=== PATIENT | female | born 1960 | race Caucasian/White ===

== ENCOUNTER → 2023-08-02 10:49 | Outpatient (REF) | payer MEDICARE, OTHER, SELFPAY | LOC: HWRAD 10:49 | PROVIDERS: ATTENDING PHYSICIAN Nurse Practitioner | DX: J40 Bronchitis, not specified as acute or chronic (principal) | CPT/HCPCS: 71046 ==

== ENCOUNTER → 2023-09-12 08:50 | Outpatient (REF) | payer MEDICARE, OTHER, SELFPAY | LOC: RAD 08:50 | PROVIDERS: ATTENDING PHYSICIAN Internal Medicine; FAMILY PHYSICIAN Nurse Practitioner | DX: R13.19 Other dysphagia (principal) | CPT/HCPCS: 74221 ==

== ENCOUNTER 2023-10-15 12:18 | Emergency (ER) | payer MEDICARE, OTHER, SELFPAY ==
[2023-10-15 12:20] VITALS: BP 102/68
--- NOTE | 2023-10-15 12:39 | ED.GENMED ---
History of Present Illness
General
Chief Complaint: Fall
Source: patient
Exam Limitations: none
Time Seen by Provider: 10/15/23 12:33
History of Present Illness
History of Present Illness:
See MDM
Past History
Past History
ED Past Medical History: Hypercholesterolemia and Other (Kidney stone status post recent lithotripsy on the left, RSD, Alzheimer's, diverticulosis, irritable bowel syndrome)
ED Past Surgical History: Gynecological, Orthopedic (Spinal cord stimulator) and Urological
Social History
Tobacco: Non-smoker
Alcohol: None
Drug: None
Personal:
Living: with family
Employment: Not employed
Family History
Family History: Other (Father with lymphoma)
Phy Exam
Physical Exam
Physical Exam:
See MDM
Course
Orders/Labs/Results
Orders:
Orders
10/15/23 12:37
CT Cervical Spine W/o Iv Contr Urgent
Comment:
Reason For Exam: Fall, Neck pain
CT Head W/o Iv Contrast Urgent
Comment:
Reason For Exam: Fall, R side headache
Ketorolac [Toradol] 30 mg IM NOW STA
Shoulder, Right, Trauma [CR Shoulder, Trauma - Right] Urgent
Comment:
Reason For Exam: Fall, R shoulder pain
Vital Signs
Initial and Last Documented VS:
Initial Vital Signs
Temp Pulse Resp BP Pulse Ox
98.2 F 70 18 102/68 97
10/15/23 12:20 10/15/23 12:20 10/15/23 12:20 10/15/23 12:20 10/15/23 12:20
Last Documented Vital Signs
Temp Pulse Resp BP Pulse Ox
98.2 F 70 18 102/68 97
10/15/23 12:20 10/15/23 12:20 10/15/23 12:20 10/15/23 12:20 10/15/23 12:20
MDM/Problems Addressed
Differential Diagnosis Includes:
HPI and MDM Narrative:
62-year-old female presenting with a fall. She got up to go to the bathroom and she believes he tripped and fell. She hit the right side of her head and her right shoulder. Patient complaining of pain. She is chronically on narcotic. Will give
dose of Toradol and obtain CT head and neck and right shoulder x-ray.
Physical exam
General: Well appearing and non-toxic
HEENT: protecting airway. Right scalp hematoma
Neck: Mild paracervical muscle tenderness supple
CV: No evidence of cyanosis
Resp: No accessory muscle use
Abd: Non-distended
Extremities: Tenderness to anterior right shoulder along AC joint. Pain with external rotation. Extremity otherwise neurovascularly intact
Neuro: alert
Psych: Normal affect
Skin: Intact
Problems Addressed including Acute and Chronic Conditions affecting care:
1. Head injury
Acuity: acute
Prognosis: stable
Details: Will obtain CT head
2. Right shoulder injury
Acuity: acute
Prognosis: stable
Details: Will obtain shoulder x-ray
Updates
CT head and neck negative. Shoulder x-ray negative. Discussed return precautions and follow-up with orthopedics if symptoms persist
Differential Diagnosis (but not limited to): Intracranial hemorrhage, contusion, concussion, fracture, sprain, rotator cuff injury
Testing considered: Blood work
Drug therapy (if applicable): OTC meds, please see d/c instruction regarding Rx drugs
Amount and/or Complexity of Data Reviewed
Clinical info obtained from: Patient
External data reviewed: N/A
Labs I independently reviewed (but not limited to): N/A
Radiology: The CT scan was personally and independently reviewed. In addition, official CT report reviewed.
X-ray independently reviewed: Shoulder x-ray without fracture or dislocation
Pulse Ox: not hypoxic
EKG independently reviewed: N/A
Frame Nailer: N/A
Critical Care: N/A
Risk of Complication:
Social Determinants of health: Good social support
Discussed with other providers: N/A
Escalation of Care includes Admit/Obs: After being observed in the Emergency Department, pt stable for discharge.
Occasional wrong word or 'sound a like' substitutions may have occurred due to the inherent limitations of voice recognition software. Read the chart carefully and recognize, using context, where substitutions have occurred.
*Critical Care Note
Total Time (30-74mins, 75-104mins- exclusive of procedures): Not Applicable
ED Attending Note
-
Portions of this chart may have been created with voice recognition software.� Occasional wrong word or��sound alike� substitutions may have occurred due to the inherent limitations of voice recognition software.
Discharge Plan
Departure
Patient Disposition: Home (Routine Discharge)
Date of Disposition: 10/15/23
Time of Disposition: 14:22
Patient with high blood pressure during this ER visit?: No
Discharge Problem:
Head injury, Injury of shoulder
Instructions: Rotator Cuff Injury (DC)
Prescriptions:
No Action
levothyroxine 125 mcg Tablet
125 mcg PO DAILY
oxycodone 5 mg Tablet
5 mg PO Q4H
rosuvastatin [Crestor] 20 mg Tablet
20 mg PO DAILY
lorazepam [Ativan] 1 mg tablet
1 mg PO DAILY PRN (Reason: anxiety) Qty: 10 0RF
baclofen 10 mg tablet
10 mg PO TID Qty: 21 0RF
Referrals:
Lonnie Ware MD [Active] -
Ruchi Cardona CRNP [Family Provider] -
Activity Restrictions/Additional Instructions:
Please return for any worsening symptoms.
You may return at any time if you have further concerns.
Please follow up with your doctor at the first available appointment, preferably this week.
Please make an appointment to see the orthopedist if symptoms persist.
Thank you for choosing [facility].
Interventions
Interventions:
*Risk Screen - Suicide Last Done: 10/15/23 12:20
*General Assessment Last Done: 10/15/23 12:20
Discharge Date and Time
Print Language: SCOTTISH
[2023-10-15] MEDS: TORADOL 30 MG IM (12:42)
[2023-10-15 14:44] VITALS: BP 129/88
== END 2023-10-15 14:45 | disposition home or self-care (01) ==
LOC: EMR 12:18
PROVIDERS: EMERGENCY PHYSICIAN Student in an Organized Health Care Education/Training Program; FAMILY PHYSICIAN Nurse Practitioner
DX: S09.90XA Unspecified injury of head, initial encounter (principal); S49.91XA Unspecified injury of right shoulder and upper arm, initial encounter; W01.0XXA Fall on same level from slipping, tripping and stumbling without subsequent striking against object, initial encounter
CPT/HCPCS: 99284; 96372; 70450; 72125; 73030

== ENCOUNTER → 2024-01-26 13:22 | Outpatient (REF) | payer MEDICARE, OTHER, SELFPAY | LOC: RCS 13:22 | PROVIDERS: ATTENDING PHYSICIAN Internal Medicine Cardiovascular Disease; FAMILY PHYSICIAN Nurse Practitioner | DX: R07.89 Other chest pain (principal) | CPT/HCPCS: 93017; 93350 ==

== ENCOUNTER → 2024-02-22 12:38 | Outpatient (REF) | payer MEDICARE, OTHER, SELFPAY | LOC: HWRAD 12:38 | DX: M25.551 Pain in right hip (principal) | CPT/HCPCS: 73030; 73502 ==

== ENCOUNTER → 2024-04-02 15:07 | Outpatient (REF) | payer MEDICARE, OTHER, SELFPAY | LOC: HWWDC 15:07 | PROVIDERS: ATTENDING PHYSICIAN Obstetrics & Gynecology | DX: Z12.31 Encounter for screening mammogram for malignant neoplasm of breast (principal) | CPT/HCPCS: 77063; 77067 ==

== ENCOUNTER → 2024-07-31 12:39 | Outpatient (REF) | payer MEDICARE, OTHER, SELFPAY | LOC: HWRAD 12:39 | DX: R51.9 Headache, unspecified (principal); Z91.81 History of falling | CPT/HCPCS: 70450 ==

== ENCOUNTER 2024-09-01 22:47 | Inpatient (IN) | payer MEDICARE, OTHER, SELFPAY ==
[2024-09-01] VITALS (28 sets, daily range): BP systolic 91–163; BP diastolic 67–93; BMI 27.9
[2024-09-01] MEDS: NSS 1000 IV (17:39)
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
[2024-09-01 18:26] LABS: % Basophils 0.7 % (0-2); % Eosinophils 9.5 % (0-6); % Immature Granulocytes 0.2 % (0-0.5); % Lymphocytes 42.5 % (20.5-51.1); % Monocytes 9.1 % (1.7-9.3); Absolute Eosinophils 0.4 10^3/uL (0-0.7); Absolute Monocytes 0.4 10^3/uL (0.1-0.6); Absolute Neutrophils 1.8 10^3/uL (1.4-6.5); Hematocrit 36.9 % (37.0-47.0); Hemoglobin 12.5 g/dL (12.0-16.0); Mean Corp Hgb Conc. 33.9 g/dL (33.0-37.0); Mean Corpuscular Hgb 30.6 pg (27.0-31.0); Mean Corpuscular Volume 90.2 fL (81.0-99.0); Mean Platelet Volume 10.5 fL (7.4-10.4); Nucleated Red Blood Cells % 0 %; Platelet Count 166 10^3/uL (130-400); Red Blood Cell Count 4.09 10^6/uL (4.20-5.40); Red Cell Dist. Width 12.8 % (11.5-14.5); White Blood Cell Count 4.6 10^3/uL (4.8-10.8)
[2024-09-01 18:56] LABS: ALT (SGPT) 18 U/L (0-35); AST (SGOT) 28 U/L (14-36); Acetaminophen < 10 ug/ml (10-30); Albumin 4.2 g/dl (3.5-5.0); Alkaline Phosphatase 91 U/L (38-126); Blood Urea Nitrogen 12 mg/dl (7-17); Calcium 9.2 mg/dl (8.4-10.2); Carbon Dioxide 26 mmol/L (22-30); Chloride 106 mmol/L (98-107); Estimated Creatinine Clearance 75 ml/min; Glucose 89 mg/dl (70-99); Magnesium 1.9 mg/dl (1.6-2.3); Potassium 4.3 mmol/L (3.5-5.1); Salicylate 3.6 mg/dl (2.0-20.0); Sodium 137 mmol/L (135-145); Total Bilirubin 0.3 mg/dl (0.2-1.3); Total Protein 6.9 g/dl (6.3-8.2); eGFR > 60.00
[2024-09-01 18:57] LABS: Alcohol None Detected
[2024-09-01 19:45] LABS: Amphetamines Negative (Negative); Barbiturates Negative (Negative); Benzodiazepines Negative (Negative); Buprenorphine Negative (Negative); Cocaine Negative (Negative); Marijuana Negative (Negative); Methadone Negative (Negative); Methamphetamines Negative (Negative); Opiates Positive (Negative); Phencyclidine Negative (Negative); Tricyclic Antidepressants Negative (Negative)
[2024-09-01 20:06] LABS: Fentanyl, Urine Negative (Negative)
--- NOTE | 2024-09-01 20:45 | PTCARENOTE ---
Pt remains on 1:1. Pt was observed slumped over to her right side and shaking. Pt was unarousable to verbal stimuli but did arouse to painful stimuli. VSS. Pt vomited a large amount of emesis. Tigan IM given. See MAR. Pt remains awake but
detached from reality. Pt remains on 1:1. Dr. Lyn made aware. Will continue to monitor.
[2024-09-01 20:52] LABS: Glucose - Point of Care 89 mg/dl (70-99)
[2024-09-01] MEDS: TIGAN 200 MG IM (21:20)
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
[2024-09-02] VITALS (58 sets, daily range): BP systolic 68–169; BP diastolic 46–153; BMI 28.8
--- NOTE | 2024-09-02 00:45 | PTCARENOTE ---
Patient received from ED, awake and alert, oriented to self only. NSR on monitor, afebrile, blood pressure as documented. Palpable pulses throughout, no edema noted. Lungs clear, pulse ox 95% on room air. Abdomen obese with positive bowel
sounds. Skin intact. #20 g in RAC flushed and patent. 1:1 at bedside
[2024-09-02] MEDS: NSS 1000 IV ×2 (00:48→02:51)
--- NOTE | 2024-09-02 02:22 | PTCARENOTE ---
Patient unable to void, while speaking to patient, patient had seizure like activity, heart rate in the 130s, patient then went into PEA, code 9 called. See CODE sheet.
--- NOTE | 2024-09-02 02:47 | W.PN.ANESINT ---
Anesthesia Intubation Note
- Intubation Note
Intubation Note:
Diagnosis: respiratory distress
Blade: glidescope
Tube Size: 8.0 HiLo
Depth: 22cm
Side Taped: center
Drugs Used: 200mg propofol, 50mg rocuronium
Grade View: grade 1 view
EtCO2 Present: ETCO2 color change present on ETCO2 detector
Atraumatic: atramatic intubation
Attempts: 1
Insertion Start and Stop Time: 224 start 228 end
SaO2 Pre: 95 start
SaO2 Post: 99 end
Glidescope Used: live glidescope used
Other Airway Adjustments: none
Pre-Oxygenated: preoxygenated by respiratory therapy
Portable Chest X-Ray: ordered
RSI: no
Suctioned: no
Bilateral Breath Sounds Confirmed: bilateral breath sounds confirmed, no breath sounds over abdomen
Vent Settings:
Settings per _X__Attending Physician
Cynthia Nix CRNA
[2024-09-02] MEDS: CORDARONE 518 MG IV (02:52)
[2024-09-02] MEDS: DIPRIVAN 100 IV ×3 (02:53→14:57)
[2024-09-02] MEDS: LEVOPHED 250 IV (02:53)
[2024-09-02 03:10] LABS: B.E. -2.9 mmol/L; HCO3 22.6 mmol/L (21-28); PCO2 41 mmHg (32-35); PO2 289 mmHg (83-108); pH 7.35 (7.35-7.45)
[2024-09-02] MEDS: SUBLIMAZE 100 MCG IV (03:42)
[2024-09-02 03:47] LABS: Hematocrit 33.9 % (37.0-47.0); Mean Corp Hgb Conc. 35.4 g/dL (33.0-37.0); Mean Corpuscular Volume 90.4 fL (81.0-99.0); Mean Platelet Volume 11.2 fL (7.4-10.4); Platelet Count 153 10^3/uL (130-400); Red Blood Cell Count 3.75 10^6/uL (4.20-5.40); Red Cell Dist. Width 12.5 % (11.5-14.5); White Blood Cell Count 6.8 10^3/uL (4.8-10.8)
[2024-09-02] MEDS: SUBLIMAZE 100 IV ×2 (03:50→15:37)
[2024-09-02 03:55] LABS: INR 0.96; PT 13.2 Sec (11.4-14.6)
[2024-09-02] MEDS: ATIVAN 1 MG IV (03:55)
[2024-09-02 03:56] LABS: APTT 24.5 Sec (23.4-35.0)
--- NOTE | 2024-09-02 03:58 | W.PN.UPDATE ---
Update Note
Progress Note Update
09/02/2024
0222- Code 9 was called for PEA arrest. Just prior to code patient had seizure, likely hypoxemic event lead to code. Patient also overdosed on Trazodone and Sertraline which is what prompted her ER visit, and could also have prolonged QT interval.
CPR was initiated immediately and medications epinephrine and bicarb given IV. Patient intubated during resuscitation efforts by [employer]. Dr. Reyes, hospitalist at bedside during code, recommendations received. Pulse check was done because an
organized rhythm was thought to be seen. Tachycardia with ectopy and random beats of wide complex tachycardia, all very irregular but pulse was palpable. Magnesium IV given, amiodarone 150mg IV bolus, and amiodarone gtt initiated to help avoid
ventricular arrhythmias. EKG obtained to check QT which showed prolonged interval. Labs sent, chest xray ordered to confirm ETT placement, and propofol/fentanyl initiated for sedation. Dr. Reyes attempted to call patient's but he did not
answer the phone.
[2024-09-02 04:14] LABS: ALT (SGPT) 21 U/L (0-35); AST (SGOT) 46 U/L (14-36); Albumin 3.7 g/dl (3.5-5.0); Alkaline Phosphatase 57 U/L (38-126); Blood Urea Nitrogen 11 mg/dl (7-17); Calcium 7.4 mg/dl (8.4-10.2); Carbon Dioxide 21 mmol/L (22-30); Chloride 107 mmol/L (98-107); Direct Bilirubin 0.9 mg/dl (0.0-0.4); Estimated Creatinine Clearance 98 ml/min; Glucose 159 mg/dl (70-99); Magnesium 2.2 mg/dl (1.6-2.3); Phosphorus 3.4 mg/dl (2.5-4.5); Potassium 4.1 mmol/L (3.5-5.1); Sodium 136 mmol/L (135-145); Total Bilirubin 1.4 mg/dl (0.2-1.3); Total Protein 6.3 g/dl (6.3-8.2); eGFR > 60.00
[2024-09-02] MEDS: SUBLIMAZE 50 MCG IV ×4 (04:14→20:23)
[2024-09-02] MEDS: SYNTHROID 25 MCG TUBE (05:28)
--- NOTE | 2024-09-02 07:50 | PTCARENOTE ---
Received patient ET to vent, sedated with Fentanyl and Propofol drips, SB in 50s with prolonged QTc, Amiodarone drip discontinued per credit consultant, NGT and Palma in place.
[2024-09-02] MEDS: CALCIUM GLUCONATE 100 IV ×3 (08:03→22:30)
[2024-09-02] MEDS: KEPPRA 1000 MG IV (08:05)
[2024-09-02] MEDS: PROTONIX IV 40 MG IV (08:06)
[2024-09-02] MEDS: NSS (PRESERVATIVE FREE) 10 ML IV (08:06)
[2024-09-02 09:16] LABS: Triglycerides 640 mg/dl (10-149)
--- NOTE | 2024-09-02 09:27 | CON.CAR ---
Addendum entered and electronically signed by Earl Garcia MD 09/02/24 14:03:
I saw and examined the patient.
The COVER SEAMER's note was reviewed and I agree with the note.
Comment: The documented bradycardia, Torsades, QT prolongation, and short atrial runs are all likely secondary to toxic-metabolic conditions and medication toxicities. I would avoid amiodarone. No role for EPS/ICD/Pacemaker or specific medical
therapy. We will follow with you.
Original Note:
Consultation
Consultation Request
Date/Time Consultation Requested: 09/02/2024 08:45
Date/Time Consultation Performed: 09/02/2024 09:30
Requesting Provider: Dr. Hernandez
Performing Provider: KAR Montana for Dr. Garcia
Reason for Consultation: Long QT s/p PEA arrest
Medical History
-
Chief Complaint: Overdose
History of Present Illness:
Danni Burrows is a 63 year old female with progressive early-onset Alzheimer's dementia, severe hyperlipidemia (LDL off meds over 190), remote cardiac ablation for arrhythmia (details unknown), and RSD of the foot with neurostimulator who
presented with overdose. Her endorsed depression related to diagnosis of dementia. Patient had an argument with family and she took trazodone and sertraline. Approximately 25-30 50 mg trazodone tablets were missing and approximately 10
100 mg sertraline pills. This was at approximately 4:30 PM. She presented to the emergency department awake but confused. At approximately 2 AM a code 9 was called for PEA arrest. Just prior to this she had a seizure. It is believed to be driven
in the setting of hypoxemia. During resuscitation efforts she had significant ectopy. ROSC achieved after 1 round. Cardiology was consulted for prolonged QTc.
Past Medical History
Past Medical History: Arrhythmias (SVT), GERD, Hypercholesterolemia, Hypothyroidism and Other (Alzheimer's dementia, RSD)
Past Surgical History: Other (Subtotal thyroidectomy)
Social History
Tobacco: Non-Smoker
Alcohol: None
Drug: None
Personal:
Living: With Family
Employment: Retired
Family History
Family History: Unable to Obtain
Allergies / Home Medications
Allergy/AdvReac Type Severity Reaction Status Date / Time
clopidogrel Allergy Unknown Unknown Verified 10/15/23 12:25
Sulfa (Sulfonamide Allergy Hives Verified 02/08/23 12:15
Antibiotics)
�Medication �Instructions �Recorded �Confirmed �Type
buspirone 15 mg tablet 15 mg PO BID 09/01/24 09/01/24 History
clonazepam 0.125 mg disintegrating 0.125 mg PO HS 09/01/24 09/01/24 History
tablet
levothyroxine 25 mcg tablet 25 mcg PO DAILY 09/01/24 09/01/24 History
melatonin 3 mg tablet 6 mg PO HS 09/01/24 09/01/24 History
memantine 10 mg tablet 10 mg PO BID 09/01/24 09/01/24 History
oxycodone 30 mg tablet 30 mg PO Q6H PRN Pain 09/01/24 09/01/24 History
pantoprazole 40 mg tablet,delayed 40 mg PO DAILY 09/01/24 09/01/24 History
release
pregabalin 200 mg capsule 200 mg PO TID 09/01/24 09/01/24 History
rosuvastatin 20 mg tablet 20 mg PO HS 09/01/24 09/01/24 History
sertraline 200 mg capsule 200 mg PO HS 09/01/24 09/01/24 History
trazodone 50 mg tablet 50 mg PO HS 09/01/24 09/01/24 History
Review of Systems
-
Unable to obtain full review of systems at this time due to: Patient Intubation
Physical Exam
Vital Signs
Temp Pulse Resp BP Pulse Ox
98.8 F 57 18 84/61 99
09/02/24 07:40 09/02/24 05:30 09/02/24 05:30 09/02/24 05:00 09/02/24 08:10
Lab Results
09/02/24 03:32
Physical Exam
General: Well Developed, Well Nourished, No Apparent Distress and Intubated
HEENT: Normocephalic, Anicteric and Moist Mucous Membranes
Respiratory: Clear and Other (Mechanical ventilation)
Cardiac: S1/S2 and Regular Rhythm
Breast: Deferred by me
GI: Soft, Non Tender, Non Distended and Normal Bowel Sounds
Rectal: Deferred by Provider
Genito-urinary: No Costovertebral Tender
Musculoskeletal: No Clubbing, No Cyanosis and No Edema
Skin: Warm and Dry
Neuro: Sedated
Hematologic/Lymphatic: No Lymphadenopathy
Psych: Calm
Impression / Plan
-
I/P: 63F with progressive early-onset Alzheimer's dementia, severe hyperlipidemia (LDL off meds over 190), remote cardiac ablation for arrhythmia (details unknown), and RSD of the foot with neurostimulator who presented with overdose
Primary party demonstrator: Dr. Garcia
PEA arrest
- Believed to be prompted by hypoxemia per notes
- Intubated and sedated
- No amiodarone for now
- Follow telemetry
Prolonged QTc
- Likely a side effect of trazodone
- Some torsades on telemetry
- Magnesium stable
- EKG in a.m.
Abnormal troponin, likely nonischemic myocardial injury in the setting of CPR
- Trend to peak
- EKG
Seizure, EEG in progress during consult
Intentional overdose, trazodone and sertraline, risk of serotonin syndrome
Early onset dementia, medications on hold
Hyperlipidemia, rosuvastatin on hold
RSD with opioid dependence
Hypothyroidism status post subtotal thyroidectomy, on levothyroxine
Data Reviewed
-
EKG: Report Reviewed by me (Sinus rhythm, prolonged QTc)
Medical Tests (Nuc Med, Echo etc): Report Reviewed by me
Labs: Labs Reviewed by me
Old Records: Reviewed
[2024-09-02] MEDS: NSS IV (10:00)
[2024-09-02 11:07] LABS: B.E. -0.8 mmol/L; HCO3 24.3 mmol/L (21-28); O2 Saturation % 98.6 % (94-98); PCO2 41 mmHg (32-35); PO2 209 mmHg (83-108); pH 7.38 (7.35-7.45)
[2024-09-02 11:19] LABS: Ionized Calcium 1.06 mMOL/L (1.15-1.33)
[2024-09-02 11:33] LABS: Blood Urea Nitrogen 10 mg/dl (7-17); Calcium 8.2 mg/dl (8.4-10.2); Carbon Dioxide 28 mmol/L (22-30); Chloride 106 mmol/L (98-107); Estimated Creatinine Clearance 98 ml/min; Glucose 97 mg/dl (70-99); Magnesium 2.1 mg/dl (1.6-2.3); Potassium 4.2 mmol/L (3.5-5.1); Sodium 139 mmol/L (135-145); Triglycerides 105 mg/dl (10-149); eGFR > 60.00
[2024-09-02 12:02] LABS: NT-proBNP 528 pg/ml; Troponin I 0.094 ng/ml
--- NOTE | 2024-09-02 12:10 | PTCARENOTE ---
Reassessed the patient, continue Fentanyl and Propofol drip, VS stable.
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
--- NOTE | 2024-09-02 14:13 | CM ---
Initial assessment completed with who lives with his in a one story plus basement home with 3 steps to enter. Does have HC POA. will supply a copy. reports that patient spends alot of time in bed due to depression,
dementia and RSD. She is able to walk without assistive devices but it depends on how she is feeling. Patient does have a spinal cord stimulator. She does not drive. Needs assistance with ADL's. There are no services in the home but she does
have a supervisor safety deposit for 3 hours on Tuesdays and . is considering hiring [facility] for additional assistance. No service. PCP is Dr. Aniceto Cornelius with [facility] . Patient currently
intubated. Discharge POC: TBD based on medical progression.
--- NOTE | 2024-09-02 15:16 | W.PN.HOSP.TC ---
Today's Communication/Plan
-
see outlined plan below
Assessment / Plan
Assessment / Plan
Assessment:
PEA arrest, likely in setting of QTC prolongation and seizure episode from drug overdose (sertraline and trazodone)
- Cards following
- Echo pending
- troponin .094 - trend to peak. likely nonischemic myocardial injury in the setting of CPR
- monitor electrolytes
- Amio was started, but now stopped due to QTc
- monitor Tele/EKGs, did have evidence of Torsades briefly
- appreciate Cards eval
Seizure activity
- EEG
- appreciate Neuro eval
acute hypoxic vent dependant respiratory failure post PEA/Seizure
- vent/sedation per ICU protocols
- appreciate archeologist management
Intentional suicide attempt via drug overdose (sertraline and trazodone)
- appreciate Psych eval
Hypocalcemia
- replete
Early onset dementia
- holding PO meds
Hyperlipidemia
RSD with opioid dependence
Hypothyroidism status post subtotal thyroidectomy, on levothyroxine
DVT ppx: Lovenox
Code: Full
Total Critical Care Time 41 minutes. I was immediately available to the patient and staff. I personally examined, reviewed labs, diagnostic images/reports, interpretations, treatment plans, discussed patient care with other providers and family
or caregivers (if patient is unable to make decisions), entered orders as appropriate and documented the medical record.
Anticipated Discharge: > 48 hours
Subjective/Interval History
-
Date of Service: September 02, 2024
overnight events reviewed
remains intubated/sedated
Objective Data
-
Labs:
Laboratory Results
09/02/24 09/02/24 09/02/24
03:32 03:32 03:32
WBC 6.8 Cancelled
Hgb 12.0 Cancelled
Hct 33.9 L
Plt Count
PT
INR
APTT
HCO3
Sodium
Potassium
Chloride
Carbon Dioxide
BUN
Creatinine
Glucose
Calcium
Total Bilirubin
AST
ALT
Alkaline Phosphatase
09/02/24 09/02/24 09/02/24
03:32 03:32 03:32
WBC
Hgb
Hct Cancelled
Plt Count 153 Cancelled
PT 13.2
INR 0.96
APTT 24.5
HCO3
Sodium 136 Cancelled
Potassium 4.1
Chloride
Carbon Dioxide
BUN
Creatinine
Glucose
Calcium
Total Bilirubin
AST
ALT
Alkaline Phosphatase
09/02/24 09/02/24 09/02/24
03:32 03:32 03:32
WBC
Hgb
Hct
Plt Count
PT
INR
APTT
HCO3
Sodium
Potassium Cancelled
Chloride 107 Cancelled
Carbon Dioxide 21 L Cancelled
BUN 11
Creatinine
Glucose
Calcium
Total Bilirubin
AST
ALT
Alkaline Phosphatase
09/02/24 09/02/24 09/02/24
03:32 03:32 03:32
WBC
Hgb
Hct
Plt Count
PT
INR
APTT
HCO3
Sodium
Potassium
Chloride
Carbon Dioxide
BUN Cancelled
Creatinine 0.6 Cancelled
Glucose 159 H Cancelled
Calcium 7.4 L D
Total Bilirubin
AST
ALT
Alkaline Phosphatase
09/02/24 09/02/24 09/02/24
03:32 10:52 10:55
WBC
Hgb
Hct
Plt Count
PT
INR
APTT
HCO3 24.3
Sodium 139
Potassium 4.2
Chloride 106
Carbon Dioxide 28
BUN 10
Creatinine 0.6
Glucose 97
Calcium Cancelled 8.2 L
Total Bilirubin 1.4 H D
AST 46 H
ALT 21
Alkaline Phosphatase 57
Vital Signs:
Vital Signs
Temp Pulse Resp BP Pulse Ox
99.1 F 54 18 129/77 100
09/02/24 11:19 09/02/24 13:30 09/02/24 13:30 09/02/24 13:30 09/02/24 13:30
I&O
09/01/24 09/02/24 09/03/24
06:59 06:59 06:59
Intake Total 1882.8 / 2037.7 605.3 / 605.3
Output Total 960 / 1035 695 / 695
Balance 922.8 / 1002.7 -89.7 / -89.7
Physical Exam
-
General: No Apparent Distress and Intubated
HEENT: Normocephalic and Atraumatic
Respiratory: Negative Wheezes
Cardiac: Regular Rhythm and S1/S2
Musculoskeletal: No Edema
Neuro: Sedated
Data Reviewed
-
Critical Care Time (in minutes): 41
Labs: Labs Reviewed by me
--- NOTE | 2024-09-02 16:00 | PTCARENOTE ---
Reassessed the patient, pt was able to nod/shake for simple questions while on low sedation, was updated at bedside.
--- NOTE | 2024-09-02 17:28 | EEG.RPT ---
Electroencephalogram Report
Recording
Date of EE09/02/24
Type of EEG: Routine
Length of EEG recordin mins
Patient Status: Inpatient
Report
Clinical Background:�63 year old woman admitted for overdose of trazodone and sertraline, with seizure and PEA arrest
Introduction: A routine bedside EEG was done using [employer] 10-20 electrode placement protocol.
Background: In the comatose state, there is continuous generalized beta activity of moderate amplitude. There is spontaneous variability and reactivity.�
Sleep: No sleep is seen.�
Focal/epileptiform: There were no focal or epileptiform discharges. No clinical or electrographic seizures occurred during this recording.
Photic stimulation: resulted in no background change. There was no photo myogenic or photoparoxysmal response.�
Impression: generalized beta activity, likely medication effect
--- NOTE | 2024-09-02 17:30 | CON.NEURO ---
Neuro Assessment/Plan
Assessment
symptomatic seizure due to serotonin syndrome
PEA arrest
intentional overdose
EEG showing generalized beta activity, likely medication effect
Plan
d/c Keppra
Consultation
Order
Date of Consultation: 09/02/24
Requesting Provider: Tim Caro
Reason for Consult: seizure
Subjective/Objective
Subjective Data
Date of Service: September 02, 2024
63 year old woman recently diagnosed with Alzheimer's dementia, follows at [place], presents after intentional overdose. took trazodone 50 mg 25-30 tab and sertraline 200 mg 10 tab. around 2 am patient had a seizure, then went into PEA arrest, ROSC
after 1 cycle of CPR
Objective Data
Vital Signs
Temp Pulse Resp BP Pulse Ox
37.8 C 53 13 108/71 100
09/02/24 15:37 09/02/24 15:30 09/02/24 15:30 09/02/24 15:30 09/02/24 15:38
Lab Results
09/02/24 03:32
09/02/24 10:55
PT 13.2 Sec (11.4-14.6) 09/02/24 03:32
INR 0.96 09/02/24 03:32
APTT 24.5 Sec (23.4-35.0) 09/02/24 03:32
Sodium 139 mmol/L (135-145) 09/02/24 10:55
Potassium 4.2 mmol/L (3.5-5.1) 09/02/24 10:55
BUN 10 mg/dl (7-17) 09/02/24 10:55
Glucose 97 mg/dl (70-99) 09/02/24 10:55
Calcium 8.2 mg/dl (8.4-10.2) L 09/02/24 10:55
Phosphorus 3.4 mg/dl (2.5-4.5) 09/02/24 03:32
Phosphorus Cancelled 09/02/24 03:32
Nib-Q-Gqwjcwwmylh Pept 528 pg/ml 09/02/24 10:55
Ur Buprenorphine Negative (Negative) 09/01/24 19:18
Patient Allergies
clopidogrel Allergy (Unknown, Verified 10/15/23 12:25)
Unknown
Sulfa (Sulfonamide Antibiotics) Allergy (Verified 02/08/23 12:15)
Hives
Physical Exam
-
coma
pupils 2 mm sluggish, + corneal reflex, no cough
localize and withdraws to deep noxious stim x4
Medications
-
Active Medications
Generic Name Dose Route Start Last Admin
Trade Name Freq PRN Reason Stop Dose Admin
Acetaminophen 650 mg 09/02/24 02:38
Acetaminophen (Oral Solution) 650 Mg/20.3 Ml Cup TUBE 09/30/24 02:37
Q6HPRN PRN
fever>100.3
Bisacodyl 10 mg 09/02/24 02:38
Bisacodyl 10 Mg Rectal Suppository RECTAL 09/30/24 02:37
DAILYPRN PRN
no BM within 72 hours
Enoxaparin Sodium 40 mg 09/02/24 18:00
Enoxaparin Sodium 40 Mg/0.4 Ml Syringe SC 09/30/24 17:59
QPM ISAAC
Fentanyl Citrate 50 mcg 09/02/24 02:38 09/02/24 07:43
Fentanyl (50 Mcg/Ml) 100 Mcg/2 Ml Ampul IV 09/16/24 02:37 50 mcg
[id number] PRN Administration
see protocol
Protocol
Fentanyl Citrate 1,000 mcg in 100 mls @ 0 mls/hr 09/02/24 02:45 09/02/24 15:37
Sublimaze IV 100 mls
PER PROTOCOL ISAAC Administration
Protocol
Per Protocol
Propofol 1,000,000 mcg in 100 mls @ 0 mls/hr 09/02/24 02:45 09/02/24 14:57
Diprivan IV 100 mls
PER PROTOCOL ISAAC Administration
Protocol
Per Protocol
Epinephrine HCl 4 mg in 250 mls @ 0 mls/hr 09/02/24 07:45
Adrenalin IV
PER PROTOCOL ISAAC
Protocol
Per Protocol
Levetiracetam 1,000 mg 09/02/24 08:00 09/02/24 08:05
Levetiracetam (100 Mg/Ml) 500 Mg/5 Ml Vial IV 09/30/24 07:59 1,000 mg
Q12 ISAAC Administration
Levothyroxine Sodium 25 mcg 09/02/24 06:00 09/02/24 05:28
Levothyroxine 25 Mcg Tablet TUBE 09/30/24 05:59 25 mcg
DAILY @ 0600 ISAAC Administration
Lorazepam 1 mg 09/02/24 02:41 09/02/24 03:55
Lorazepam 2 Mg/Ml Vial IV 09/30/24 00:32 1 mg
Q1HPRN PRN Administration
Seizure activity/vent synch
Pantoprazole Sodium 40 mg 09/02/24 08:00 09/02/24 08:06
Pantoprazole Sodium 40 Mg/10 Ml Vial IV 09/30/24 07:59 40 mg
DAILY ISAAC Administration
Polyethylene Glycol 17 grams 09/03/24 08:00
Polyethylene Glycol Powder 17 Grams Packet TUBE 10/01/24 07:59
DAILY ISAAC
Rosuvastatin Calcium 20 mg 09/02/24 22:00
Rosuvastatin (Crestor) 20 Mg Tablet TUBE 09/30/24 21:59
HS ISAAC
Sodium Chloride 0 flush 09/01/24 23:00
Sodium Chloride 0.9% (Flush) Syringe IV 09/29/24 22:59
PER PROTOCOL ISAAC
Sodium Chloride 10 ml 09/02/24 08:00 09/02/24 08:06
Sodium Chloride 0.9% (Preservative Free) 10 Ml Vial IV 09/30/24 07:59 10 ml
DAILY ISAAC Administration
Sodium Chloride 0.5 ml 09/02/24 02:52
Nss (Pf) 10 Ml Vial For Ativan 1 Mg Dose IV 09/30/24 02:51
Q1HPRN PRN
IV LORAZEPAM DILUTION
Trimethobenzamide HCl 200 mg 09/02/24 00:33
Trimethobenzamide 200 Mg/2 Ml Vial IM 09/30/24 00:32
Q6HPRN PRN
N/V
Home Medications
�Medication �Instructions �Recorded
buspirone 15 mg tablet 15 mg PO BID Mental Health/Anxiety 09/01/24
clonazepam 0.125 mg disintegrating 0.125 mg PO HS Mental 09/01/24
tablet Health/Anxiety
levothyroxine 25 mcg tablet 25 mcg PO DAILY Thyroid 09/01/24
melatonin 3 mg tablet 6 mg PO HS Sleep 09/01/24
memantine 10 mg tablet 10 mg PO BID Neurological Condition 09/01/24
oxycodone 30 mg tablet 30 mg PO Q6H PRN Pain 09/01/24
pantoprazole 40 mg tablet,delayed 40 mg PO DAILY Gastrointestinal 09/01/24
release Issue
pregabalin 200 mg capsule 200 mg PO TID Pain 09/01/24
rosuvastatin 20 mg tablet 20 mg PO HS High Cholesterol 09/01/24
sertraline 200 mg capsule 200 mg PO HS Mental Health/Anxiety 09/01/24
trazodone 50 mg tablet 50 mg PO HS Sleep 09/01/24
[2024-09-02] MEDS: LOVENOX 40 MG SC (18:05)
[2024-09-02] MEDS: TYLENOL ORAL SOLUTION 650 MG TUBE (18:36)
--- NOTE | 2024-09-02 20:00 | PTCARENOTE ---
On assessment pt intubated and sedated, pt on PROP and FEN gtt per MD orders, pt can follows some commands, SB on the monitor 49-55, DIRECTOR OF RELIGIOUS LIFE made aware, ETT 26 at the lip, 18/400/60/5, R jonny esquivel to anthony MCCOY for critical Is&Os
[2024-09-02 20:03] LABS: Troponin I 0.081 ng/ml
[2024-09-02] MEDS: CRESTOR 20 MG TUBE (20:24)
[2024-09-02 21:56] LABS: Blood Urea Nitrogen 8 mg/dl (7-17); Calcium 7.9 mg/dl (8.4-10.2); Carbon Dioxide 24 mmol/L (22-30); Chloride 110 mmol/L (98-107); Estimated Creatinine Clearance 98 ml/min; Glucose 100 mg/dl (70-99); Magnesium 1.9 mg/dl (1.6-2.3); Potassium 3.1 mmol/L (3.5-5.1); Sodium 135 mmol/L (135-145); eGFR > 60.00
[2024-09-02] MEDS: KCL 270 MEQ IV (22:21)
[2024-09-02] MEDS: MAGNESIUM SULFATE 102 GRAMS IV (23:54)
[2024-09-03] VITALS (31 sets, daily range): BP systolic 109–143; BP diastolic 70–117; PULSE 70; BMI 28.7
[2024-09-03] MEDS: SUBLIMAZE 50 MCG IV ×2 (01:19→04:58)
[2024-09-03] MEDS: DIPRIVAN 100 IV (01:52)
--- NOTE | 2024-09-03 02:09 | PTCARENOTE ---
pt more rigid and agitated, Rehabilitation Assistant made aware and at bedside to assess pt, poison control updated on changes, FiO2 titrating down, 99%, electrolytes repleted, pain controlled per MD orders, see MAR
[2024-09-03 03:12] LABS: Hematocrit 36.3 % (37.0-47.0); Hemoglobin 12.1 g/dL (12.0-16.0); Mean Corp Hgb Conc. 33.3 g/dL (33.0-37.0); Mean Corpuscular Volume 90.1 fL (81.0-99.0); Mean Platelet Volume 10.8 fL (7.4-10.4); Platelet Count 151 10^3/uL (130-400); Red Blood Cell Count 4.03 10^6/uL (4.20-5.40); Red Cell Dist. Width 12.8 % (11.5-14.5); White Blood Cell Count 6.4 10^3/uL (4.8-10.8)
[2024-09-03 03:17] LABS: ALT (SGPT) 21 U/L (0-35); AST (SGOT) 54 U/L (14-36); Albumin 3.4 g/dl (3.5-5.0); Alkaline Phosphatase 56 U/L (38-126); Blood Urea Nitrogen 7 mg/dl (7-17); Calcium 8.4 mg/dl (8.4-10.2); Carbon Dioxide 25 mmol/L (22-30); Chloride 111 mmol/L (98-107); Creatine Phosphokinase 1257 U/L (30-135); Estimated Creatinine Clearance 98 ml/min; Glucose 93 mg/dl (70-99); Magnesium 2.2 mg/dl (1.6-2.3); Potassium 3.9 mmol/L (3.5-5.1); Sodium 139 mmol/L (135-145); Total Bilirubin 0.6 mg/dl (0.2-1.3); Total Protein 5.7 g/dl (6.3-8.2); eGFR > 60.00
[2024-09-03] MEDS: SUBLIMAZE 100 IV (03:25)
[2024-09-03] MEDS: SYNTHROID 25 MCG TUBE (04:57)
--- NOTE | 2024-09-03 05:20 | PTCARENOTE ---
pt more agitated this AM, PRN meds given see MAR,
[2024-09-03] MEDS: KCL 260 MEQ IV (05:34)
--- NOTE | 2024-09-03 07:30 | PTCARENOTE ---
Received patient arousable to voice, ET to vent, FiO2 40%, SB in low 50s, EKG in AM showed improved QTc, BP stable, NGT in Right nare to low intermittent suction, bile color drainage, FC in place.
--- NOTE | 2024-09-03 08:00 | W.PN.CD ---
Today's Communication / Plan
-
Continue Tele
No Amio
EKG in AM
Echo tomorrow
Impression / Plan
-
I/P: 63F with progressive early-onset Alzheimer's dementia, severe hyperlipidemia (LDL off meds over 190), remote cardiac ablation for arrhythmia (details unknown), and RSD of the foot with neurostimulator who presented with overdose
Primary seed production field supervisor: Dr. Garcia
PEA arrest
- Believed to be prompted by hypoxemia/drug effects per notes
- No sustained VT/VF
- Bradycardia, PAT, Short Torsades all see around time of arrest/resuscitation
- In last 24 hours we see SB and one short run of AT
- QT is shortening
Prolonged QTc
- Likely a side effect of trazodone
- QT is shortening
- No Torsades in last 24 hours
Abnormal troponin, likely nonischemic myocardial injury in the setting of CPR
- Trend to peak
- EKG w/o evidence of MA
- Will check echo (tomorrow, 09/04/2024) assess cardiac status
Seizure, EEG in progress during consult
Intentional overdose, trazodone and sertraline, risk of serotonin syndrome
Early onset dementia, medications on hold
Hyperlipidemia, rosuvastatin on hold
RSD with opioid dependence
Hypothyroidism status post subtotal thyroidectomy, on levothyroxine
Subjective: Remains intubated but alert and responsive and plans to move towards extubation
Physical Exam
Vital Signs/Labs
Vital Signs
Temp Pulse Resp BP Pulse Ox
99.4 F 48 18 120/74 99
09/03/24 02:06 09/03/24 06:00 09/03/24 06:00 09/03/24 06:00 09/03/24 07:19
09/02/24 09/03/24 09/04/24
06:59 06:59 06:59
Actual Weight 78.4 kg 78.3 kg
09/03/24 02:35
09/03/24 02:35
PT 13.2 Sec (11.4-14.6) 09/02/24 03:32
INR 0.96 09/02/24 03:32
APTT 24.5 Sec (23.4-35.0) 09/02/24 03:32
Magnesium 2.2 mg/dl (1.6-2.3) 09/03/24 02:35
Triglycerides 105 mg/dl (10-149) 09/02/24 10:55
09/02/24
10:55
Aez-D-Jfmhsxjfwos Pept 528
LAB Results
09/02/24 09/02/24 09/02/24
10:55 12:45 18:50
Troponin I 0.094 H* Cancelled 0.081 H*
09/02/24 09/03/24
20:45 02:35
Troponin I Cancelled 0.080 H*
Physical Exam
Constitutional: No acute distress
Cardiovascular: Rhythm & rate is regular and Pedal edema is absent
Respiratory: Crackles Absent
GI: Soft and Distention absent
Neuro/Psych: Alert
Data Reviewed
-
Date of Service: September 03, 2024
[2024-09-03] MEDS: NSS (PRESERVATIVE FREE) 10 ML IV (08:20)
[2024-09-03] MEDS: MIRALAX 17 GRAMS TUBE (08:20)
[2024-09-03] MEDS: PROTONIX IV 40 MG IV (08:22)
[2024-09-03] MEDS: SUBLIMAZE IV (08:27)
--- NOTE | 2024-09-03 11:41 | W.PN.INTV ---
Today's Communication / Plan
Recommendations
Potential downgrade to IMU/telemetry unit if stable
Extubation
Nursing to evaluate dietary needs
Continue monitoring electrolytes and QTc daily
One-to-one monitoring
Psych evaluation pending
Discontinue pressors and Protonix
ALFREDO Palma
Assessment
-
Assessment:
63-year-old female past medical history of early onset dementia presents for suicide attempt/medication overdose of trazodone and sertraline. She had a cardiac arrest, seizure and is now intubated in the ICU. She was found to have an extremely
prolonged QTc her first morning in the ICU.
Plan:
#Medication overdose
#Intentional suicide attempt
#Depression
Suspected medications are 20-30 50 mg trazodone pills and approximately 10, 200 mg sertraline
Patient was able to be extubated successfully after passing SAT and SBT
Currently refusing nasal cannula, satting greater than 90%
Has been was successfully weaned off pressors
Continue holding home antidepressants
One-to-one while admitted
Psych consult, evaluation pending
Nursing to evaluate bedside for diet
Palma discontinued
If patient remains stable, could be potential downgrade to IMU/telemetry
#PEA cardiac arrest
Patient coded her first night in the hospital, ROSC was achieved after 1 cycle of CPR
Status post administration of epinephrine, saline, bicarb, magnesium during code
Cardiology following
Echocardiogram returned EF 60 to 65%, no focal motion wall abnormality
Believe PEA was prompted by hypoxemia, per notes and cardiology
Troponins were elevated, have plateaued and began downtrending
Discontinue troponin trend
Follow telemetry
#Prolonged QTc
Resolved, QTc 466 this morning
Likely side effect of trazodone overdose
Status post potassium, calcium and magnesium supplementation
Cardiology following
Amiodarone discontinued
Avoid QT prolonging agents, avoid agents that exacerbate bradycardia
Telemetry, repeat EKG in a.m.
Recheck electrolytes in a.m. supplement as needed
#Seizures
Resolved
Per nursing, patient had a witnessed tonic-clonic seizure overnight which escalated into a PEA cardiac arrest
Status post Keppra administration
Unsure etiology, likely secondary to medication over dose
Neurology consulted
Stat EEG
EEG returned generalized beta activity which is thought to be medication effect by neurology
Neurology recommended that there is no need for Keppra at this time, recommendations appreciated
Keppra discontinued
CODE STATUS: Full code
Diet: N.p.o.
DVT prophylaxis: Subcu Lovenox 40
Subjective Dataa
Subjective Data
Date of Service:
Date of Service: September 03, 2024
Chief Complaint: Elastic Attacher Coverstitch Follow Up
Subjective:
Patient was successfully extubated after she was able to follow commands, had a successful spontaneous awakening trial and spontaneous breathing trial. After extubation, patient was pleasant, reports she does not remember anything of the past few
days. Reports that last thing she remembers was taking medications. She is able to follow commands, seems in good spirits and is communicating well with staff and . She reports she is not hungry, she does report irritation of the throat.
Patient denies hunger, reports some thirst. Reports no shortness of breath.
Review of Systems
HEENT: Oral/Throat Pain (Reports throat pain)
Cardiopulmonary: Other (No cardiopulmonary symptoms reported)
GI: Other (No GI symptoms reported)
Objective Data
Data Reviewed
Vital Signs / I&O / Oxygen:
Vital Signs
Temp Pulse Resp BP Pulse Ox
99.4 F 75 16 120/74 99
09/03/24 02:06 09/03/24 09:14 09/03/24 09:14 09/03/24 06:00 09/03/24 10:45
Intake and Output
09/02/24 09/03/24 09/04/24
06:59 06:59 06:59
Intake Total 1882.8 / 2036.7 1106.2 / 1106.2
Output Total 960 / 1035 1954 / 1954
Balance 922.8 / 1002.7 -848.8 / -848.8
SaO2 [A/C] 98
SaO2 99
Physical Exam
General: Comfortable
Cardiovascular: S1-S2
Respiratory: Clear and Non-Labored Respirations
Neurology: Awake, Alert, Oriented and Other (Able to follow commands. Is alert and oriented to person, but not place.)
Skin: Warm and Dry
Labs/Micro/Reports
Lab Data
09/03/24 02:35
09/03/24 02:35
--- NOTE | 2024-09-03 12:00 | PTCARENOTE ---
08:35, Titrating down Propofol and Fentanyl drips, started patient on SBT trial. Updated Eleazar at bedside.
10:30, Extubated patient, discontinued restraints, removed [place], refused using NC 4L, saturating 96% on RA, made Dr. Lopez aware.
12:00, Discontinued FC.
12:00, Reassessed the patient, pt was 1:1 observation, pt was awake&alert with agitation, resting comfortably in bed, on RA, BP stable, call romo within reach.
--- NOTE | 2024-09-03 13:29 | W.PN.HOSP.TC ---
Today's Communication/Plan
-
extubated to RA
transfer to tele
keep 1:1
Psych/Neuro will discuss with patients OP Psych/Neuro (From [facility]) regarding medication management.
Assessment / Plan
Assessment / Plan
Assessment:
PEA arrest, likely in setting of QTC prolongation and seizure episode from drug overdose (sertraline and trazodone)
- Echo: Normal biventricular size and systolic function without regional wall motion abnormality. Estimated LVEF 60-65%. No significant valve disease. Dilated proximal ascending aorta: 4.1 cm.
- troponin peaked at .094. likely nonischemic myocardial injury in the setting of CPR
- monitor electrolytes
- Amio was started, but now stopped due to QTc
- no evidence of further Torsades. QTC normalized
- follow AM EKG
- Cards following
Seizure activity
- EEG unremarkable
- Neuro following
- off Keppra
acute hypoxic vent dependant respiratory failure post PEA/Seizure
- extubated 09/03/24
Intentional suicide attempt via drug overdose (sertraline and trazodone)
- Psych following
- continue 1:1
- holding PO meds for now
Hypocalcemia
- replete
Early onset dementia
- holding PO meds
Hyperlipidemia - statin
RSD with opioid dependence
Hypothyroidism status post subtotal thyroidectomy, on levothyroxine
Hypokalemia - replete prn
DVT ppx: Lovenox
Code: Full
Total Critical Care Time 41 minutes. I was immediately available to the patient and staff. I personally examined, reviewed labs, diagnostic images/reports, interpretations, treatment plans, discussed patient care with other providers and family or
caregivers (if patient is unable to make decisions), entered orders as appropriate and documented the medical record.
Transfer to Tele
Anticipated Discharge: > 48 hours
Subjective/Interval History
-
Date of Service: September 03, 2024
extubated to RA today
Objective Data
-
Labs:
Laboratory Results
09/03/24
02:35
WBC 6.4
Hgb 12.1
Hct 36.3 L
Plt Count 151
Sodium 139
Potassium 3.9 D
Chloride 111 H
Carbon Dioxide 25
BUN 7
Creatinine 0.6
Glucose 93
Calcium 8.4
Total Bilirubin 0.6
AST 54 H
ALT 21
Alkaline Phosphatase 56
Vital Signs:
Vital Signs
Temp Pulse Resp BP Pulse Ox
99.4 F 75 16 120/74 99
09/03/24 02:06 09/03/24 09:14 09/03/24 09:14 09/03/24 06:00 09/03/24 10:45
I&O
09/02/24 09/03/24 09/04/24
06:59 06:59 06:59
Intake Total 1882.8 / 7.7 1106.2 / 1106.2
Output Total 960 / 1035 1954
Balance 922.8 / 1002.7 -848.8 / -848.8
Physical Exam
-
General: No Apparent Distress
HEENT: Normocephalic and Atraumatic
Respiratory: Negative Wheezes
Cardiac: Regular Rhythm and S1/S2
GI: Soft and Nontender
Genito-urinary: No Costovertebral Tender
Neuro: AO x 3
Hematologic / Lymphatic: No Lymphadenopathy
Psych: Calm
Data Reviewed
-
Critical Care Time (in minutes): 41
Labs: Labs Reviewed by me
--- NOTE | 2024-09-03 14:41 | CM ---
Extubated. Psychiatry and Neurology to reach out to patient's outpatient psych and neuro physicians to coordinate POC.
--- NOTE | 2024-09-03 15:27 | PTOTSP ---
Dysphagia Evaluation
Oral/pharyngeal swallowing suspected to be grossly WFL. Patient with baseline dysphagia risk factors (i.e., history of abnormal esophageal motility, dementia) and acute risk factors (i.e., intubation 09/02-09/03 with mild dysphonia/hoarse quality).
Recommend:
1. Regular, Thin
2. Full supervision, assist as needed
3. Medications as best tolerated
4. Strategies: upright to 90 degrees, small single sips/bites, slow rate, reflux precautions
[2024-09-03] MEDS: LYRICA 200 MG PO ×2 (16:20→20:55)
--- NOTE | 2024-09-03 16:41 | PTCARENOTE ---
14:00, patient wanted to urinate, advised pt to try bedpan in bed, patient refused, offered purewick, pt refused again. Patient insisted to use toilet, explained potential risks regarding recent PEA arrest event, patient and her understood
and still chose toilet. This RN recommended bedside commode, patient and family said okay to try. Got patient up with to the bedside commode without any adverse events.
--- NOTE | 2024-09-03 17:33 | PTCARENOTE ---
pt oob in chair for 2 hours tolerated well , max assist x 2 oob
[2024-09-03] MEDS: LOVENOX 40 MG SC (17:51)
[2024-09-03] MEDS: NSS 1000 IV (17:51)
--- NOTE | 2024-09-03 20:00 | PTCARENOTE ---
on assessment pt alert to self, confused conversation, sitter at bedside, denies pain and SOB at this time, pt drowsy but alert and arousable to voice, SR on the monitor, RA, reg diet, purwick in place
[2024-09-03] MEDS: ARICEPT 10 MG PO (20:55)
[2024-09-03] MEDS: NAMENDA 10 MG PO (20:55)
[2024-09-03] MEDS: CRESTOR 20 MG PO (20:55)
[2024-09-04] VITALS (16 sets, daily range): BP systolic 86–153; BP diastolic 67–95; PULSE 72; BMI 28.1
[2024-09-04 04:59] LABS: Hematocrit 35.8 % (37.0-47.0); Hemoglobin 12.4 g/dL (12.0-16.0); Mean Corp Hgb Conc. 34.6 g/dL (33.0-37.0); Mean Corpuscular Hgb 30.5 pg (27.0-31.0); Mean Corpuscular Volume 88.2 fL (81.0-99.0); Mean Platelet Volume 10.5 fL (7.4-10.4); Platelet Count 141 10^3/uL (130-400); Red Blood Cell Count 4.06 10^6/uL (4.20-5.40); Red Cell Dist. Width 12.8 % (11.5-14.5); White Blood Cell Count 7.4 10^3/uL (4.8-10.8)
[2024-09-04 05:26] LABS: ALT (SGPT) 58 U/L (0-35); AST (SGOT) 188 U/L (14-36); Albumin 3.5 g/dl (3.5-5.0); Alkaline Phosphatase 56 U/L (38-126); Blood Urea Nitrogen 9 mg/dl (7-17); Carbon Dioxide 27 mmol/L (22-30); Chloride 111 mmol/L (98-107); Estimated Creatinine Clearance 97 ml/min; Glucose 93 mg/dl (70-99); Magnesium 2.1 mg/dl (1.6-2.3); Sodium 141 mmol/L (135-145); Total Bilirubin 0.6 mg/dl (0.2-1.3); Total Protein 5.9 g/dl (6.3-8.2); eGFR > 60.00
[2024-09-04 05:39] LABS: Creatine Phosphokinase 5703 U/L (30-135)
--- NOTE | 2024-09-04 05:55 | PTCARENOTE ---
DIRECTOR OPERATING ROOM made aware of morning labs
[2024-09-04] MEDS: SYNTHROID 25 MCG PO (06:05)
[2024-09-04] MEDS: NSS 1000 IV ×2 (06:05→17:23)
[2024-09-04] MEDS: KLOR-CON 40 MEQ PO (06:19)
[2024-09-04] MEDS: TYLENOL ORAL SOLUTION 650 MG PO (06:20)
[2024-09-04] MEDS: KCL 270 MEQ IV (06:23)
--- NOTE | 2024-09-04 06:35 | PTCARENOTE ---
SENIOR MATERIALS ANALYST made aware of frequent formed BMs, pt states her 'belly is upset'
[2024-09-04] MEDS: TUMS CHEWABLE TABLET 400 MG PO (07:17)
[2024-09-04] MEDS: NAMENDA 10 MG PO ×2 (07:19→20:28)
[2024-09-04] MEDS: LYRICA 200 MG PO ×3 (07:19→21:01)
--- NOTE | 2024-09-04 07:45 | PTCARENOTE ---
Patient received lying in bed, awake and alert but confused. Oriented to self and event only. She knows she is in the hospital but cannot state where. She currently denies pain and states that her headache is gone. See electrotype caster charted on
worklist flowsheet. BBS clear. SR on CM. She follows commands at times but she is difficult to redirect other times with difficulty following commands. She is refusing breakfast. IVF infusing per order. Bed in low and locked position, rails padded.
1:1 Sitter at bedside for patient safety due to suicidal ideation and impulsivity. Call romo in reach.
--- NOTE | 2024-09-04 08:30 | PTCARENOTE ---
OOB to chair with help of PT/OT. To BSC with SBA x 2 and rolling walker. Patient requires repetitive direction and guidance to sit. Patient with loose BM. Skin care provided. Assisted back to chair.
--- NOTE | 2024-09-04 08:46 | W.PN.CD ---
Today's Communication / Plan
-
Watch on tele
Daily EKGs
Impression / Plan
-
I/P: 63F with progressive early-onset Alzheimer's dementia, severe hyperlipidemia (LDL off meds over 190), remote cardiac ablation for arrhythmia (details unknown), and RSD of the foot with neurostimulator who presented with overdose
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 Garcia
PEA arrest
- Believed to be prompted by hypoxemia/drug effects per notes
- No sustained VT/VF
- Bradycardia, PAT, Short Torsades all see around time of arrest/resuscitation
- In last 24 hours indira/AT/convincing torsades (one 5 beat run is near clear artifact)
- QT is shortening
Prolonged QTc
- Likely a side effect of trazodone
- QT is shortening
- No convincing Torsades in last 24 hours
Abnormal troponin, likely nonischemic myocardial injury in the setting of CPR
- Peak was 0.081 on 09/02/2024 and fell on repeat on 09/03/2024
- EKG w/o evidence of UT/acute ischemia
- Echo was done 09/02/2024 and was fine
Seizure, per neurology
Intentional overdose, trazodone and sertraline, risk of serotonin syndrome, psych involved
Early onset dementia, medications has been resumed
Hyperlipidemia, rosuvastatin has been resumed
RSD with hx opioid dependence
Hypothyroidism status post subtotal thyroidectomy, on levothyroxine
Subjective: Extubated, comfortable, alert, did not recall who I was
Echo 09/02/2024:LVEF 60-65%. No significant valve disease. Asc Ao dilated at 4.1 cm. Compared to 08/26/21: prior Asc Ao measurement was 4.0cm.
Physical Exam
Vital Signs/Labs
Vital Signs
Temp Pulse Resp BP Pulse Ox
98.4 F 67 16 146/95 98
09/04/24 07:50 09/04/24 06:30 09/04/24 06:30 09/04/24 06:00 09/04/24 01:57
09/03/24 09/04/24 09/05/24
06:59 06:59 06:59
Actual Weight 78.3 kg 76.7 kg
09/04/24 04:32
09/04/24 04:32
PT 13.2 Sec (11.4-14.6) 09/02/24 03:32
INR 0.96 09/02/24 03:32
APTT 24.5 Sec (23.4-35.0) 09/02/24 03:32
Magnesium 2.1 mg/dl (1.6-2.3) 09/04/24 04:32
Triglycerides 105 mg/dl (10-149) 09/02/24 10:55
09/02/24
10:55
Fnh-H-Mvgxusgtubd Pept 528
LAB Results
09/02/24 09/02/24 09/02/24
10:55 12:45 18:50
Troponin I 0.094 H* Cancelled 0.081 H*
09/02/24 09/03/24
20:45 02:35
Troponin I Cancelled 0.080 H*
Physical Exam
Constitutional: No acute distress
EENT: Anicteric
Cardiovascular: Rhythm & rate is regular and Pedal edema is absent
Respiratory: Respiratory effort normal and Lungs clear to auscul.
GI: Soft and Distention absent
Neuro/Psych: Alert
Data Reviewed
-
Date of Service: September 04, 2024
--- NOTE | 2024-09-04 11:05 | CM ---
CM following for discharge planning. Pt is on 1:1 due to intentional overdose of trazadone and sertraline. Extubated 08/2024. Patient mostly stays in bed due to her depression and chronic pain, requires assistance with ADL's. has hired
code inspector services, 2 days/week for 3 hours. He is considering hiring additional services through [facility].
PT/OT following with recommendation for SNF admission.
Plan: CM to follow to coordinate discharge plan; psych consult pending
--- NOTE | 2024-09-04 12:54 | W.PN.HOSP.TC ---
Today's Communication/Plan
-
await psych recs for meds and overall placement plan if indicated in setting of OD/SI
continue IVF and trend CPK
Assessment / Plan
Assessment / Plan
Assessment:
PEA arrest, likely in setting of QTC prolongation and seizure episode from drug overdose (sertraline and trazodone)
- Echo: Normal biventricular size and systolic function without regional wall motion abnormality. Estimated LVEF 60-65%. No significant valve disease. Dilated proximal ascending aorta: 4.1 cm.
- troponin peaked at .094. likely nonischemic myocardial injury in the setting of CPR
- monitor electrolytes
- Amio was started, but now stopped due to QTc
- no evidence of further Torsades. QTC normalized on serial EKGs
- Cards following
Seizure activity
- EEG unremarkable
- Neuro following
- off Keppra
Rhabdomyolysis, related to seizure, and drug overdose
AST>ALT
- continue aggressive IVF
- CPK 5700 - monitor daily trends
acute hypoxic vent dependant respiratory failure post PEA/Seizure
- extubated 09/03/24; stable on RA
Intentional suicide attempt via drug overdose (sertraline and trazodone)
- Psych following
- continue 1:1
- holding PO meds for now pending evaluation
Hypocalcemia
- replete
Early onset dementia
- continue Aricept/namenda
Hyperlipidemia - statin
RSD with opioid dependence
Hypothyroidism status post subtotal thyroidectomy, on levothyroxine
Hypokalemia - replete prn
DVT ppx: Lovenox
Code: Full
Anticipated Discharge: > 48 hours
Subjective/Interval History
-
Date of Service: September 04, 2024
denies any new complaints at present
Objective Data
-
Labs:
Laboratory Results
09/04/24
04:32
WBC 7.4
Hgb 12.4
Hct 35.8 L
Plt Count 141
Sodium 141
Potassium 3.0 L
Chloride 111 H
Carbon Dioxide 27
BUN 9
Creatinine 0.6
Glucose 93
Calcium 8.0 L
Total Bilirubin 0.6
AST 188 H
ALT 58 H
Alkaline Phosphatase 56
Vital Signs:
Vital Signs
Temp Pulse Resp BP Pulse Ox
98.3 F 65 16 108/69 95
09/04/24 11:30 09/04/24 12:00 09/04/24 12:00 09/04/24 11:48 09/04/24 07:40
I&O
09/03/24 09/04/24 09/05/24
06:59 06:59 06:59
Intake Total 1106.2 / 1128.1 274.1 / 274.1 185 / 185
Output Total 1954 950 / 950
Balance -848.8 / -956.9 -675.9 / -675.9 185 / 185
Physical Exam
-
General: No Apparent Distress
HEENT: Normocephalic and Atraumatic
Respiratory: Negative Wheezes
Cardiac: Regular Rhythm and S1/S2
GI: Soft and Nontender
Neuro: AO x 3
Hematologic / Lymphatic: No Lymphadenopathy
Psych: Calm
Data Reviewed
-
Total Time Spent with Patient (in minutes): 42
Labs: Labs Reviewed by me
--- NOTE | 2024-09-04 13:45 | PTCARENOTE ---
Report given verbally to RN assuming care, Sirisha ALVARES on 4W. Patient belongings gathered. Patient transported via wheelchair accompanied by RN and PCT.
--- NOTE | 2024-09-04 15:19 | W.PN.UPDATE ---
Update Note
Progress Note Update
Pt seen at bedside, chart reviewed. Pt grossly oriented. Able to have meaningful interview, though at times noted to become distracted or confused. Pt was able to discuss recent overdose today - is visibly tearful when discussing this due to
feelings of regret over the action. Describes as impulsive act in the context of stressors with her daughters. Denies having SI prior to this, denies having plan, describes regretting taking the medication immediately after doing so. Does describe
struggling with depressed mood however this has been manageable with the help of her outpatient psychiatrist and emotional support from her and she denies prior thoughts of SI or prior SAs. She does also report significant stressor of
discord with her daughters, however this is reported to be fci of many years and with no acute worsening recently.
Spoke to pts outside of room as well. He corroborated the above, there does not appear to be any history of SI and pt has not previously done anything like this. Pt dx with Alzheimers about 2.5 yrs ago with rapid progression since then, has
had several incidents in the kitchen recently due to worsening memory, has been struggling with changes in QOL due to cognitive changes. Has been seeing psychiatrist at [facility] for help with managing depression and anxiety, as per
he observed that most recent change of buspirone increase to 15mg BID seems to have had noticeable benefit to anxiety levels. Pt described as being less easily overwhelmed and better able to manage stressors. The day of the overdose pts
reports they were at a family function and pt had to leave due to becoming overwhelmed by amount of people/commotion, she also got into an argument with her daughters and appeared distraught - pts reports he went to find her in her
room and saw the open medication, leading him to intervene.
Pt nikos is currently in process of finding a teenage babysitter/support person to live with them and help pt with medication,certain adl's etc. Discussed that this person would also be managing pts medication, however in the interim pts plans to
secure all medication himself. Discussed this being beneficial due to pts worsening memory in recent months as well.
Called pts outpatient psychiatrist and left voicemail to discuss as well.
Resume buspirone 15mg BID & clonazepam 0.125mg HS
Resume sertraline at 100mg daily so as to lower risk of withdrawal, would avoid increasing further unless w/d sxs are disruptive so as to lower overall medication load given recent overdose
would not resume trazodone at this time - may benefit from low dose mirtazapine or melatonin if sleep is poor
Would not recommend inpatient psychiatric admission at this time - this was an impulsive act which seems to have scared the pt herself quite a bit and she is not currently experiencing ongoing SI, would benefit more from supportive environment at
home rather than restrictive environment of inpatient facility. Has an outpatient psychiatrist with whom she has a follow up appointment scheduled, have also placed a call to them & awaiting call back.
[2024-09-04] MEDS: LOVENOX 40 MG SC (17:24)
[2024-09-04] MEDS: BUSPAR 15 MG PO (20:27)
[2024-09-04] MEDS: TYLENOL 650 MG PO (20:27)
[2024-09-04] MEDS: TUMS CHEWABLE TABLET 200 MG PO (21:01)
[2024-09-04] MEDS: KLONOPIN 0.125 MG PO (21:01)
[2024-09-04] MEDS: CRESTOR 20 MG PO (21:02)
[2024-09-04] MEDS: ARICEPT 10 MG PO (21:02)
[2024-09-05] MEDS: TUMS CHEWABLE TABLET 200 MG PO (02:30)
[2024-09-05] MEDS: NSS 1000 IV ×3 (02:31→18:56)
[2024-09-05 03:27] VITALS: BP 134/69
[2024-09-05] MEDS: SYNTHROID 25 MCG PO (04:58)
[2024-09-05 05:18] VITALS: BMI 27.2
[2024-09-05 07:26] VITALS: BP 107/73
[2024-09-05] MEDS: LYRICA 200 MG PO ×3 (08:20→20:59)
[2024-09-05] MEDS: NAMENDA 10 MG PO ×2 (08:21→19:17)
[2024-09-05] MEDS: ZOLOFT 100 MG PO (08:21)
[2024-09-05] MEDS: BUSPAR 15 MG PO ×2 (08:21→19:17)
[2024-09-05 08:50] LABS: Hematocrit 34.2 % (37.0-47.0); Hemoglobin 12.1 g/dL (12.0-16.0); Mean Corp Hgb Conc. 35.4 g/dL (33.0-37.0); Mean Corpuscular Hgb 30.7 pg (27.0-31.0); Mean Corpuscular Volume 86.8 fL (81.0-99.0); Mean Platelet Volume 10.9 fL (7.4-10.4); Platelet Count 173 10^3/uL (130-400); Red Blood Cell Count 3.94 10^6/uL (4.20-5.40); Red Cell Dist. Width 12.9 % (11.5-14.5); White Blood Cell Count 9.6 10^3/uL (4.8-10.8)
[2024-09-05] MEDS: TYLENOL 650 MG PO ×2 (10:14→23:05)
--- NOTE | 2024-09-05 10:32 | W.PN.CD ---
Today's Communication / Plan
-
would use alternative agent to sertraline
ecg in am
keep k>4 and Mag>2
monitor tele
Impression / Plan
-
I/P: 63F with progressive early-onset Alzheimer's dementia, severe hyperlipidemia (LDL off meds over 190), remote cardiac ablation for arrhythmia (details unknown), and RSD of the foot with neurostimulator who presented with overdose
Primary cell stripper final: Dr. Garcia
PEA arrest
- Believed to be prompted by hypoxemia/drug effects per notes
- No sustained VT/VF
- Bradycardia, PAT, Short Torsades all see around time of arrest/resuscitation
Prolonged QTc
-QT prolonged again today, now 554ms after Sertraline
-would try and use alternative agent to Sertraline given QTprolongation
-d/w Dr Hernandze
-keep K >4 and Mag>2
Abnormal troponin, likely nonischemic myocardial injury in the setting of CPR
- Peak was 0.081 on 09/02/2024 and fell on repeat on 09/03/2024
- EKG w/o evidence of CT/acute ischemia
- Echo was done 09/02/2024 and was fine
Seizure, per neurology
Intentional overdose, trazodone and sertraline, risk of serotonin syndrome, psych involved
Early onset dementia, medications has been resumed
Hyperlipidemia, rosuvastatin has been resumed
RSD with hx opioid dependence
Hypothyroidism status post subtotal thyroidectomy, on levothyroxine
at the bedside
Subjective: calm, reports abd discomfort and diarrhea
Echo 09/02/2024:LVEF 60-65%. No significant valve disease. Asc Ao dilated at 4.1 cm. Compared to 08/26/21: prior Asc Ao measurement was 4.0cm.
Physical Exam
Vital Signs/Labs
Vital Signs
Temp Pulse Resp BP Pulse Ox
98.5 F 59 18 107/73 97
09/05/24 07:26 09/05/24 07:26 09/05/24 07:26 09/05/24 07:26 09/05/24 07:26
09/04/24 09/05/24 09/06/24
06:59 06:59 06:59
Actual Weight 169 lb 1.513 oz 163 lb 5 oz
09/05/24 07:24
PT 13.2 Sec (11.4-14.6) 09/02/24 03:32
INR 0.96 09/02/24 03:32
APTT 24.5 Sec (23.4-35.0) 09/02/24 03:32
Magnesium 2.1 mg/dl (1.6-2.3) 09/04/24 04:32
Triglycerides 105 mg/dl (10-149) 09/02/24 10:55
09/02/24
10:55
Ajo-U-Emgeevzaqyg Pept 528
LAB Results
09/02/24 09/02/24 09/02/24
10:55 12:45 18:50
Troponin I 0.094 H* Cancelled 0.081 H*
09/02/24 09/03/24
20:45 02:35
Troponin I Cancelled 0.080 H*
Physical Exam
Constitutional: No acute distress
Cardiovascular: Rhythm & rate is regular, Pedal edema is absent, JVD pressure is normal, Systolic murmur absent and Diastolic murmur absent
Respiratory: Respiratory effort normal, Lungs clear to auscul., Wheeze Absent, Crackles Absent and Rhonchi Absent
Neuro/Psych: AO x 3
Data Reviewed
-
Date of Service: September 05, 2024
EKG: Tracing Personally Visualized and interpreted (sinus indira with qt prolongation)
[2024-09-05 10:50] LABS: ALT (SGPT) 145 U/L (0-35); AST (SGOT) 381 U/L (14-36); Albumin 3.9 g/dl (3.5-5.0); Alkaline Phosphatase 62 U/L (38-126); Blood Urea Nitrogen 8 mg/dl (7-17); Calcium 8.5 mg/dl (8.4-10.2); Carbon Dioxide 26 mmol/L (22-30); Chloride 112 mmol/L (98-107); Estimated Creatinine Clearance 85 ml/min; Glucose 100 mg/dl (70-99); Potassium 2.6 mmol/L (3.5-5.1); Sodium 143 mmol/L (135-145); Total Bilirubin 0.6 mg/dl (0.2-1.3); Total Protein 6.4 g/dl (6.3-8.2); Triglycerides 147 mg/dl (10-149); eGFR > 60.00
[2024-09-05 11:03] LABS: Creatine Phosphokinase 8315 U/L (30-135); Magnesium 1.9 mg/dl (1.6-2.3)
[2024-09-05 11:19] VITALS: BP 135/80
[2024-09-05] MEDS: NSS IV (11:58)
[2024-09-05] MEDS: KCL 40 MEQ PO ×2 (12:56→18:56)
[2024-09-05] MEDS: KCL 270 MEQ IV ×2 (12:57→18:58)
--- NOTE | 2024-09-05 13:00 | W.PN.HOSP.TC ---
Today's Communication/Plan
-
now off 1:1 and zoloft held for prolonged QTc
replete K and Mag
repeat labs 5pm
continue IVF for rhabdo
d/w
Assessment / Plan
Assessment / Plan
Assessment:
PEA arrest, likely in setting of QTC prolongation and seizure episode from drug overdose (sertraline and trazodone)
- Echo: Normal biventricular size and systolic function without regional wall motion abnormality. Estimated LVEF 60-65%. No significant valve disease. Dilated proximal ascending aorta: 4.1 cm.
- troponin peaked at .094. likely nonischemic myocardial injury in the setting of CPR
- monitor electrolytes
- Amio was started, but now stopped due to QTc
- no evidence of further Torsades. QTC normalized on serial EKGs but elevated 09/05 after Zoloft and in setting of hypokalemia
- Cards following
Seizure activity
- EEG unremarkable
- Neuro following
- off Keppra
Rhabdomyolysis, related to seizure, and drug overdose
AST>ALT in setting of Rhabdomyolysis, not liver etiology
- continue aggressive IVF
- CPK 8300 - monitor daily trends
acute hypoxic vent dependant respiratory failure post PEA/Seizure
- extubated 09/03/24; stable on RA
Intentional suicide attempt via drug overdose (sertraline and trazodone)
- Psych following
- 1:1 can be discontinued, reviewed with Dr. Olivo
- continue Buspar/Clonazepam
- holding Zoloft
- stopped Trazodone
- does not require IP psych per Dr. Olivo
Hypocalcemia
- replete
Early onset dementia
- continue Aricept/Namenda
Hyperlipidemia - statin
RSD with opioid dependence
Hypothyroidism status post subtotal thyroidectomy, on levothyroxine
Hypokalemia - replete prn
DVT ppx: Lovenox
Code: Full
Anticipated Discharge: > 48 hours
Subjective/Interval History
-
Date of Service: September 05, 2024
resting comfortably, no complaints
Objective Data
-
Labs:
Laboratory Results
09/05/24 09/05/24
07:24 17:00
WBC 9.6
Hgb 12.1
Hct 34.2 L
Plt Count 173 D
Sodium 143 Pending
Potassium 2.6 L* Pending
Chloride 112 H Pending
Carbon Dioxide 26 Pending
BUN 8 Pending
Creatinine 0.5 L Pending
Glucose 100 H Pending
Calcium 8.5 Pending
Total Bilirubin 0.6
AST 381 H
ALT 145 H
Alkaline Phosphatase 62
Vital Signs:
Vital Signs
Temp Pulse Resp BP Pulse Ox
98.5 F 53 18 135/80 98
09/05/24 11:19 09/05/24 11:19 09/05/24 11:19 09/05/24 11:19 09/05/24 11:19
I&O
09/04/24 09/05/24 09/06/24
06:59 06:59 06:59
Intake Total 274.1 / 274.1 2644
Output Total 950 / 950
Balance -675.9 / -675.9 2644
Physical Exam
-
General: No Apparent Distress
HEENT: Normocephalic and Atraumatic
Respiratory: Negative Wheezes
Cardiac: Regular Rhythm and S1/S2
GI: Soft and Nontender
Genito-urinary: No Costovertebral Tender
Neuro: AO x 3
Psych: Calm
Data Reviewed
-
Total Time Spent with Patient (in minutes): 42
Labs: Labs Reviewed by me
--- NOTE | 2024-09-05 13:30 | PTCARENOTE ---
1300 One to one observation discontinue by DR. Olivo. Pt's spouse at bedside and aware. Place bed alarm. Pt's spouse request all four side rails up while pt in bed, will continue to monitor pt closely.
--- NOTE | 2024-09-05 14:26 | CM ---
CM reviewed chart, reviewed with Hospitalist. Patient no longer on 1:1. Patient seen bedside with , discussed plan to return home with and caregiver services when medically stable. Patient currently has private care, looking
into adding additional care through [facility], provided with list of local private duty agencies. CM discussed VN with patient/ upon discharge, do not feel necessary at this time. Patient followed by Psychiatrist at [facility].
Per psych, not recommending inpatient psych admission at this time. CM will continue to follow for all discharge planning needs.
Plan; return home with and caregivers, when medically stable
--- NOTE | 2024-09-05 15:19 | W.PN.UPDATE ---
Update Note
Progress Note Update
Pt seen at bedside, chart reviewed. also present at bedside. Pt calm and cooperative, pleasant, smiling spontaneously and appropriately. Remains overwhelmed easily but visitors have been very helpful for this. Pt reports nausea and poor
appetite past several days, discussed this potentially being withdrawal from zoloft 200mg, or at least contributed to by w/d. Pt had QTc elevation after one dose of zoloft 100mg however so holding ssri at this time. DIscussed monitoring and
assessing tomorrow as if due to w/d nausea may worsen further - discussed option of low dose prozac for short term to manage w/d sxs if need be, however will defer for now so as to maintain minimal medical load on pt.
Continue buspirone 15mg BID & clonazepam 0.125mg hs
d/c zoloft 100mg, may consider prozac 10-20mg to manage w/d sxs if needed but deferring this for now
will reach out to pts psychiatrist again to coordinate care
[2024-09-05] MEDS: TIGAN 200 MG IM (15:24)
[2024-09-05 15:44] VITALS: BP 131/83
[2024-09-05] MEDS: ROXICODONE 30 MG PO ×2 (16:00→20:29)
[2024-09-05 17:47] LABS: Blood Urea Nitrogen 6 mg/dl (7-17); Calcium 7.9 mg/dl (8.4-10.2); Carbon Dioxide 26 mmol/L (22-30); Chloride 113 mmol/L (98-107); Estimated Creatinine Clearance 85 ml/min; Glucose 102 mg/dl (70-99); Potassium 2.9 mmol/L (3.5-5.1); Sodium 141 mmol/L (135-145); eGFR > 60.00
[2024-09-05] MEDS: MAGNESIUM OXIDE 500 MG PO (18:06)
[2024-09-05] MEDS: LOVENOX 40 MG SC (18:06)
[2024-09-05 19:17] VITALS: BP 143/88
[2024-09-05] MEDS: ARICEPT 10 MG PO (20:59)
[2024-09-05] MEDS: KLONOPIN 0.125 MG PO (20:59)
[2024-09-05] MEDS: CRESTOR 20 MG PO (20:59)
[2024-09-05 23:05] VITALS: BP 115/64
[2024-09-06] VITALS (7 sets, daily range): BP systolic 125–154; BP diastolic 67–97; PULSE 54; O2SAT 97; BMI 27.6
[2024-09-06] MEDS: NSS 1000 IV (03:08)
[2024-09-06] MEDS: SYNTHROID 25 MCG PO (04:51)
[2024-09-06] MEDS: ROXICODONE 30 MG PO ×3 (04:51→20:36)
[2024-09-06 07:50] LABS: Hematocrit 31.2 % (37.0-47.0); Hemoglobin 10.8 g/dL (12.0-16.0); Mean Corp Hgb Conc. 34.6 g/dL (33.0-37.0); Mean Corpuscular Hgb 30.4 pg (27.0-31.0); Mean Corpuscular Volume 87.9 fL (81.0-99.0); Mean Platelet Volume 10.3 fL (7.4-10.4); Platelet Count 163 10^3/uL (130-400); Red Blood Cell Count 3.55 10^6/uL (4.20-5.40); Red Cell Dist. Width 12.8 % (11.5-14.5); White Blood Cell Count 8.5 10^3/uL (4.8-10.8)
[2024-09-06 08:44] LABS: ALT (SGPT) 144 U/L (0-35); AST (SGOT) 222 U/L (14-36); Albumin 3.2 g/dl (3.5-5.0); Alkaline Phosphatase 51 U/L (38-126); Blood Urea Nitrogen 4 mg/dl (7-17); Calcium 7.9 mg/dl (8.4-10.2); Carbon Dioxide 27 mmol/L (22-30); Chloride 115 mmol/L (98-107); Estimated Creatinine Clearance 96 ml/min; Glucose 101 mg/dl (70-99); Magnesium 1.7 mg/dl (1.6-2.3); Potassium 3.1 mmol/L (3.5-5.1); Sodium 144 mmol/L (135-145); Total Bilirubin 0.4 mg/dl (0.2-1.3); Total Protein 5.5 g/dl (6.3-8.2); eGFR > 60.00
[2024-09-06 09:06] LABS: Creatine Phosphokinase 3788 U/L (30-135)
[2024-09-06] MEDS: MAGNESIUM OXIDE 500 MG PO (09:51)
[2024-09-06] MEDS: NAMENDA 10 MG PO ×2 (09:52→20:09)
[2024-09-06] MEDS: KCL 40 MEQ PO (09:57)
[2024-09-06] MEDS: LYRICA 200 MG PO ×3 (10:01→22:06)
[2024-09-06] MEDS: NSS with KCL 40 MEQ 1000 IV (10:01)
[2024-09-06] MEDS: BUSPAR 15 MG PO ×2 (10:01→20:08)
[2024-09-06] MEDS: CALCIUM GLUCONATE 10% INJECTION 130 MG IV (10:01)
--- NOTE | 2024-09-06 11:15 | CM ---
CM reviewed chart, patient seen bedside with . Plan remains return home with , caregivers, and outpatient follow up at [facility]. Will continue to follow for all discharge planning needs.
Plan; home with , caregivers, when medically stable
--- NOTE | 2024-09-06 12:15 | W.PN.HOSP.TC ---
Today's Communication/Plan
-
follow psych recs
follow AM CPK for likely dc in AM
Assessment / Plan
Assessment / Plan
Assessment:
PEA arrest, likely in setting of QTC prolongation and seizure episode from drug overdose (sertraline and trazodone)
- Echo: Normal biventricular size and systolic function without regional wall motion abnormality. Estimated LVEF 60-65%. No significant valve disease. Dilated proximal ascending aorta: 4.1 cm.
- troponin peaked at .094. likely nonischemic myocardial injury in the setting of CPR
- monitor electrolytes
- Amio was started, but now stopped due to QTc
- no evidence of further Torsades. QTC normalized on serial EKGs but elevated 09/05 after Zoloft and in setting of hypokalemia. QTc 09/06 improved
- Cards following
Seizure activity
- EEG unremarkable
- Neuro following
- off Keppra
Rhabdomyolysis, related to seizure, and drug overdose
AST>ALT in setting of Rhabdomyolysis, not liver etiology
- continue aggressive IVF
- CPK 8300 to 3700 - monitor daily trends
acute hypoxic vent dependant respiratory failure post PEA/Seizure
- extubated 09/03/24; stable on RA
Intentional suicide attempt via drug overdose (sertraline and trazodone)
- Psych following
- 1:1 can be discontinued, reviewed with Dr. Olivo
- continue Buspar/Clonazepam
- holding Zoloft; consider alternative SSRI
- stopped Trazodone
- does not require IP psych per Dr. Olivo
Hypocalcemia
- replete
Early onset dementia
- continue Aricept/Namenda
Hyperlipidemia - statin
RSD with opioid dependence
Hypothyroidism status post subtotal thyroidectomy, on levothyroxine
Hypokalemia - replete prn
DVT ppx: Lovenox
Code: Full
Anticipated Discharge: Within 24 hours
Subjective/Interval History
-
Date of Service: September 06, 2024
diarrhea improving
CPK 3700
Objective Data
-
Labs:
Laboratory Results
09/06/24
07:14
WBC 8.5
Hgb 10.8 L
Hct 31.2 L
Plt Count 163
Sodium 144
Potassium 3.1 L
Chloride 115 H
Carbon Dioxide 27
BUN 4 L
Creatinine 0.5 L
Glucose 101 H
Calcium 7.9 L
Total Bilirubin 0.4
AST 222 H
ALT 144 H
Alkaline Phosphatase 51
Vital Signs:
Vital Signs
Temp Pulse Resp BP Pulse Ox
98.0 F 56 18 154/97 97
09/06/24 11:34 09/06/24 11:34 09/06/24 11:34 09/06/24 11:34 09/06/24 11:34
I&O
09/05/24 09/06/24 09/07/24
06:59 06:59 06:59
Intake Total 2645 / 2645 1999
Balance 264 / 2645 1999
Physical Exam
-
General: No Apparent Distress
HEENT: Normocephalic and Atraumatic
Respiratory: Negative Wheezes
Cardiac: Regular Rhythm and S1/S2
GI: Soft
Genito-urinary: No Costovertebral Tender
Neuro: AO x 3
Psych: Calm
Data Reviewed
-
Total Time Spent with Patient (in minutes): 41
Labs: Labs Reviewed by me
--- NOTE | 2024-09-06 12:33 | W.PN.CD ---
Today's Communication / Plan
-
QTc improved on EKG today, Sertraline held.
Impression / Plan
-
I/P: 63F with progressive early-onset Alzheimer's dementia, severe hyperlipidemia (LDL off meds over 190), remote cardiac ablation for arrhythmia (details unknown), and RSD of the foot with neurostimulator who presented with overdose
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 Garcia
PEA arrest
- Believed to be prompted by hypoxemia/drug effects per notes
- No sustained VT/VF
- Bradycardia, PAT, Short Torsades all see around time of arrest/resuscitation
Prolonged QTc
-QT improved on EKG today 446ms. Sertraline held.
-try and use alternative agent to Sertraline given QT prolongation.
-keep K >4 and Mag>2.
Abnormal troponin, likely nonischemic myocardial injury in the setting of CPR.
- Peak was 0.081 on 09/02/2024 and fell on repeat on 09/03/2024.
- EKG w/o evidence of LA/acute ischemia.
- Echo was done 09/02/2024 and was fine.
Seizure, per neurology
Intentional overdose, trazodone and sertraline, risk of serotonin syndrome, psych involved
Early onset dementia, medications has been resumed
Hyperlipidemia, rosuvastatin has been resumed, will follow as outpatient
RSD with hx opioid dependence
Hypothyroidism status post subtotal thyroidectomy, on levothyroxine
at the bedside and questions answered.
Subjective:
calm, smiling and feels well.
no complaints.
reports feeling happy because she is going home tomorrow.
Echo 09/02/2024:LVEF 60-65%. No significant valve disease. Asc Ao dilated at 4.1 cm. Compared to 08/26/21: prior Asc Ao measurement was 4.0cm.
Physical Exam
Vital Signs/Labs
Vital Signs
Temp Pulse Resp BP Pulse Ox
98.0 F 56 18 154/97 97
09/06/24 11:34 09/06/24 11:34 09/06/24 11:34 09/06/24 11:34 09/06/24 11:34
09/05/24 09/06/24 09/07/24
06:59 06:59 06:59
Actual Weight 163 lb 5 oz 165 lb 12.602 oz
09/06/24 07:14
09/06/24 07:14
PT 13.2 Sec (11.4-14.6) 09/02/24 03:32
INR 0.96 09/02/24 03:32
APTT 24.5 Sec (23.4-35.0) 09/02/24 03:32
Magnesium 1.7 mg/dl (1.6-2.3) 09/06/24 07:14
Triglycerides 147 mg/dl (10-149) 09/05/24 07:24
09/02/24
10:55
Skc-E-Nhmzhnzutjy Pept 528
Physical Exam
Constitutional: No acute distress and Comfortable
EENT: Anicteric and Moist mucous membranes
Cardiovascular: Rhythm & rate is regular (bradycardia)
Respiratory: Respiratory effort normal and Lungs clear to auscul.
GI: Soft, Non tender and Normal bowel sounds
Neuro/Psych: AO x 3
Other: Skin (warm, dry)
Data Reviewed
-
Date of Service: September 06, 2024
EKG: Tracing Personally Visualized and interpreted
Echo: Report Reviewed by me
Labs: Labs Reviewed by me
Old Records: Reviewed
[2024-09-06] MEDS: TYLENOL 650 MG PO (16:32)
--- NOTE | 2024-09-06 16:34 | W.PN.UPDATE ---
Update Note
Progress Note Update
Pt seen at bedside, chart reviewed. also present at bedside. Pt remains calm and cooperative, pleasant, smiling spontaneously and appropriately. Does need some reminders of orientation at times during interview but as per this is
baseline. Pt is eager to go home as she misses her dog and grand-children, in good spirits, denies current depression, no current SI, remains future oriented and future planning.
Spoke to fellow on pts psychiatric team at [facility] Dr. Cindi Christie to update regarding pts admission here. She agreed on deferring any further ssri trials for the time being. Also discussed setting pt up with an outpatient
psychotherapist to help with managing stressors and processing recent events - they should be reaching out to pt and about scheduling.
Continue buspirone 15mg BID & clonazepam 0.125mg hs
Discussed with pt & not resuming sertraline or trazodone at this time, both are in agreement with this.
No indication for acute inpatient psychiatric admission at this time - pt is currently psychiatrically stable, overdose was impulsive with no prior such hx and no ongoing SI, safety measures have been taken at home with medications, pt is future
planning and has outpatient psychiatric services in place. Can discharge home when medically stable.
[2024-09-06] MEDS: LOVENOX 40 MG SC (20:07)
[2024-09-06] MEDS: KLONOPIN 0.125 MG PO (22:03)
[2024-09-06] MEDS: ARICEPT 10 MG PO (22:06)
[2024-09-06] MEDS: CRESTOR 20 MG PO (22:06)
[2024-09-07] MEDS: NSS with KCL 40 MEQ 1000 IV (01:15)
[2024-09-07 03:45] VITALS: BP 139/81
[2024-09-07 04:00] VITALS: BP 139/81
[2024-09-07] MEDS: SYNTHROID 25 MCG PO (05:31)
[2024-09-07 06:00] VITALS: BMI 28.0
--- NOTE | 2024-09-07 06:32 | PTCARENOTE ---
EKG completed to monitor QTC. Compared to yesterday, QTC elevated from [address] Chang via [place]. He confirmed he was aware, no new orders given.
[2024-09-07 07:14] LABS: Hematocrit 33.1 % (37.0-47.0); Hemoglobin 11.3 g/dL (12.0-16.0); Mean Corp Hgb Conc. 34.1 g/dL (33.0-37.0); Mean Corpuscular Hgb 30.1 pg (27.0-31.0); Mean Corpuscular Volume 88.3 fL (81.0-99.0); Mean Platelet Volume 10.4 fL (7.4-10.4); Platelet Count 176 10^3/uL (130-400); Red Blood Cell Count 3.75 10^6/uL (4.20-5.40); White Blood Cell Count 7.8 10^3/uL (4.8-10.8)
[2024-09-07 07:30] VITALS: BP 172/93
[2024-09-07 07:42] LABS: Blood Urea Nitrogen 4 mg/dl (7-17); Calcium 8.4 mg/dl (8.4-10.2); Carbon Dioxide 29 mmol/L (22-30); Chloride 111 mmol/L (98-107); Creatine Phosphokinase 1393 U/L (30-135); Estimated Creatinine Clearance 97 ml/min; Glucose 98 mg/dl (70-99); Potassium 3.3 mmol/L (3.5-5.1); Sodium 143 mmol/L (135-145); eGFR > 60.00
[2024-09-07] MEDS: KCL 40 MEQ PO (08:22)
[2024-09-07] MEDS: LYRICA 200 MG PO (08:23)
[2024-09-07] MEDS: KCL 270 MEQ IV (08:23)
[2024-09-07] MEDS: NAMENDA 10 MG PO (08:30)
[2024-09-07] MEDS: BUSPAR 15 MG PO (08:30)
[2024-09-07] MEDS: MAGNESIUM OXIDE 500 MG PO (08:30)
--- NOTE | 2024-09-07 10:25 | W.PN.HOSP.TC ---
Today's Communication/Plan
-
dc to home later today after K replacement
Assessment / Plan
Assessment / Plan
Assessment:
PEA arrest, likely in setting of QTC prolongation and seizure episode from drug overdose (sertraline and trazodone)
- Echo: Normal biventricular size and systolic function without regional wall motion abnormality. Estimated LVEF 60-65%. No significant valve disease. Dilated proximal ascending aorta: 4.1 cm.
- troponin peaked at .094. likely nonischemic myocardial injury in the setting of CPR
- monitor electrolytes
- Amio was started, but now stopped due to QTc
- no evidence of further Torsades. QTC normalized on serial EKGs but elevated 09/05 after Zoloft and in setting of hypokalemia. QTc 09/06 improved
- Cards following
Seizure activity
- EEG unremarkable
- Neuro following
- off Keppra
Rhabdomyolysis, related to seizure, and drug overdose
AST>ALT in setting of Rhabdomyolysis, not liver etiology
- continue aggressive IVF
- CPK 8300 to 1393
acute hypoxic vent dependant respiratory failure post PEA/Seizure
- extubated 09/03/24; stable on RA
Intentional suicide attempt via drug overdose (sertraline and trazodone)
- Psych following
- 1:1 can be discontinued, reviewed with Dr. Olivo
- continue Buspar/Clonazepam
- stop SSRI
- stopped Trazodone
- does not require IP psych per Dr. Olivo
- OP psych f/u @ [facility]
Hypocalcemia
- replete
Early onset dementia
- continue Aricept/Namenda
- OP Neuro f/u @ [facility]
Hyperlipidemia - statin
RSD with opioid dependence
Hypothyroidism status post subtotal thyroidectomy, on levothyroxine
Hypokalemia - replete prn
DVT ppx: Lovenox
Code: Full
More than 30 minutes spent in discharge including
Final examination of the patient
Summarizing hospital stay
Instructions for continuing care to all relevant caregivers
Preparation of discharge records, prescriptions, and referral forms
Total time spent (in minutes): 41
Anticipated Discharge: Today
Subjective/Interval History
-
Date of Service: September 07, 2024
resting comfortably, no complaints
Objective Data
-
Labs:
Laboratory Results
09/07/24
06:21
WBC 7.8
Hgb 11.3 L
Hct 33.1 L
Plt Count 176
Sodium 143
Potassium 3.3 L
Chloride 111 H
Carbon Dioxide 29
BUN 4 L
Creatinine 0.5 L
Glucose 98
Calcium 8.4
Vital Signs:
Vital Signs
Temp Pulse Resp BP Pulse Ox
98.6 F 53 20 172/93 96
09/07/24 07:30 09/07/24 07:30 09/07/24 07:30 09/07/24 07:30 09/07/24 07:30
I&O
09/06/24 09/07/24 09/08/24
06:59 06:59 06:59
Intake Total 1999 1890 / 1890
Output Total 400 / 400
Balance 1999 1490 / 1490
Physical Exam
-
General: No Apparent Distress
HEENT: Normocephalic and Atraumatic
Respiratory: Negative Wheezes
Cardiac: Regular Rhythm and S1/S2
GI: Soft and Nontender
Musculoskeletal: No Edema
Neuro: AO x 3
Psych: Calm
Data Reviewed
-
Total Time Spent with Patient (in minutes): 41
Labs: Labs Reviewed by me
--- NOTE | 2024-09-07 10:29 | W.DS.TRANS ---
DC Summary - Electrical Tester
-
Discharge Instructions:
Discharge Diagnosis/Procedures overdose on sertraline/trazodone causing
prolonged QTC and seizure, subsequent cardiac
arrest. Also rhabdomyolysis
Diet Regular
Activity As tolerated
Instructions:
Stand-Alone Forms:
Changes to Home Medications: Yes
Discharge Medications:
DC Medications w/original date entered in [facility]
buspirone 15 mg tablet 15 mg PO BID Mental Health/Anxiety 09/01/24
clonazepam 0.125 mg disintegrating tablet 0.125 mg PO HS Mental Health/Anxiety 09/01/24
levothyroxine 25 mcg tablet 25 mcg PO DAILY Thyroid 09/01/24
melatonin 3 mg tablet 6 mg PO HS Sleep 09/01/24
memantine 10 mg tablet 10 mg PO BID Neurological Condition 09/01/24
oxycodone 30 mg tablet 30 mg PO Q6H PRN Pain 09/01/24
pantoprazole 40 mg tablet,delayed release 40 mg PO DAILY Gastrointestinal Issue 09/01/24
pregabalin 200 mg capsule 200 mg PO TID Pain 09/01/24
rosuvastatin 20 mg tablet 20 mg PO HS High Cholesterol 09/01/24
donepezil 10 mg tablet 10 mg PO HS #30 tabs 09/07/24
Home Medication Changes
stop Sertraline and Trazodone
Pending Results: No
Total time spent discharging patient (in min): 41
--- NOTE | 2024-09-07 10:45 | CM ---
Chart reviewed and patient has been cleared for discharge to home with spouse today, no needs.
Plan; Home with spouse no needs.
[2024-09-07 11:34] VITALS: BP 131/77
== END 2024-09-07 15:26 | disposition home or self-care (01) | DRG 917 ==
LOC: 4 WEST ACU 22:47
PROVIDERS: Nurse Practitioner Family; Nurse Practitioner Primary Care; ADMITTING PHYSICIAN Hospitalist; ATTENDING PHYSICIAN Internal Medicine; CONSULT PHYSICIAN Psychiatry & Neurology Clinical Neurophysiology; EMERGENCY PHYSICIAN Student in an Organized Health Care Education/Training Program; OTHER PHYSICIAN Internal Medicine; OTHER PHYSICIAN Internal Medicine Cardiovascular Disease; OTHER PHYSICIAN Psychiatry & Neurology Psychiatry
PROC: 5A1945Z Respiratory Ventilation, 24-96 Consecutive Hours (ICD-10-PCS; 2024-09-02)
PROC: 0BH17EZ Insertion of Endotracheal Airway into Trachea, Via Natural or Artificial Opening (ICD-10-PCS; 2024-09-02)
DX: T43.212A Poisoning by selective serotonin and norepinephrine reuptake inhibitors, intentional self-harm, initial encounter (principal); I46.8 Cardiac arrest due to other underlying condition; J96.01 Acute respiratory failure with hypoxia; F02.83 Dementia in other diseases classified elsewhere, unspecified severity, with mood disturbance; M62.82 Rhabdomyolysis; F02.84 Dementia in other diseases classified elsewhere, unspecified severity, with anxiety; G90.50 Complex regional pain syndrome I, unspecified; F11.20 Opioid dependence, uncomplicated; I5A Non-ischemic myocardial injury (non-traumatic); I47.21 Torsades de pointes; R56.9 Unspecified convulsions; F32.A Depression, unspecified; E83.51 Hypocalcemia; E03.9 Hypothyroidism, unspecified; E87.6 Hypokalemia; E78.00 Pure hypercholesterolemia, unspecified; G30.0 Alzheimer's disease with early onset; G89.4 Chronic pain syndrome; G90.81 Serotonin syndrome; I25.10 Atherosclerotic heart disease of native coronary artery without angina pectoris; I49.3 Ventricular premature depolarization; K21.9 Gastro-esophageal reflux disease without esophagitis; Z79.890 Hormone replacement therapy; Z79.899 Other long term (current) drug therapy; Z80.7 Family history of other malignant neoplasms of lymphoid, hematopoietic and related tissues; Z88.2 Allergy status to sulfonamides; Z90.711 Acquired absence of uterus with remaining cervical stump
CPT/HCPCS: 93308; 36600; 70450; 71045; 80048; 80053; 80143; 80179; 80306; 80307; 82077; 82248; 82330; 82550; 82805; 82962; 83735; 83880; 84100; 84478; 84484; 85025; 85027; 85610; 85730; 87040; 92610; 93005; 93306; 93321; 93325; 94002; 94003; 95816; 96360; 96372; 97163; 97167; 97530; 97535; 99285

== ENCOUNTER 2025-02-26 21:06 | Inpatient (IN) | payer MEDICARE, OTHER, SELFPAY ==
[2025-02-26] VITALS (19 sets, daily range): BP systolic 83–121; BP diastolic 52–82; BMI 27.9
[2025-02-26] MEDS: TYLENOL 1000 MG PO (17:23)
[2025-02-26 17:51] LABS: Hematocrit 30.7 % (37.0-47.0); Hemoglobin 10.5 g/dL (12.0-16.0); Mean Corp Hgb Conc. 34.2 g/dL (33.0-37.0); Mean Corpuscular Volume 88.7 fL (81.0-99.0); Nucleated Red Blood Cells % 0 %; Platelet Count 165 10^3/uL (130-400); Red Cell Dist. Width 13.0 % (11.5-14.5)
[2025-02-26 18:06] LABS: COVID-19 Antigen Negative (Negative)
[2025-02-26 18:19] LABS: ALT (SGPT) 18 U/L (0-35); AST (SGOT) 33 U/L (14-36); Albumin 3.9 g/dl (3.5-5.0); Alkaline Phosphatase 74 U/L (38-126); Blood Urea Nitrogen 14 mg/dl (7-17); Calcium 8.5 mg/dl (8.4-10.2); Carbon Dioxide 27 mmol/L (22-30); Glucose 112 mg/dl (70-99); Total Protein 6.7 g/dl (6.3-8.2); eGFR > 60.00
[2025-02-26 18:22] LABS: Chloride 101 mmol/L (98-107); Potassium 4.0 mmol/L (3.5-5.1); Sodium 134 mmol/L (135-145)
--- NOTE | 2025-02-26 18:48 | ED.GENMED ---
History of Present Illness
General
Chief Complaint: Change in Mental Status
Source: patient and spouse
Exam Limitations: none
Time Seen by Provider: 02/26/25 17:39
Nursing documentation reviewed up to this point in time: agreed with
History of Present Illness
History of Present Illness:
Patient to the emergency department for evaluation of mental status change. According to her spouse, she began to become more confused and monday. Since then she continued to become more confused. Spouse denies fever or chills however she did
have a temp of 101 on arrival to the ED. He denies any nausea vomiting or diarrhea. She is eating and drinking as normal. He denies any shortness of breath or cough. She has a history of early onset Alzheimer's he states her clonazepam was
increased over the last couple weeks however he spoke with her neurologist today neurologist did not feel that this would be the cause of her symptoms. arrival to the ED patient is awake and cooperative.
Past History
Past History
ED Past Medical History: Hypercholesterolemia and Other (Kidney stone status post recent lithotripsy on the left, RSD, Alzheimer's, diverticulosis, irritable bowel syndrome)
ED Past Surgical History: Gynecological, Orthopedic (Spinal cord stimulator) and Urological
Social History
Tobacco: Non-smoker
Alcohol: None
Drug: None
Personal:
Living: with family
Employment: Not employed
Family History
Family History: Other (Father with lymphoma)
Review of Systems
Review of Systems
Allergies reviewed?: Yes
All Other Systems: ROS reviewed and negative except as documented in HPI and ROS
Constitutional: Reports fever
EENT: Reports no symptoms
Respiratory: Reports no symptoms
Cardiac: Reports no symptoms
ABD/GI: Reports no symptoms
: Reports no symptoms
Musculoskeletal: Reports no symptoms
Skin: Reports no symptoms
Neurological: Reports other (Increasing confusion)
Psychiatric: Reports no symptoms
Phy Exam
General Physical Exam
General Presentation: well appearing and no apparent distress
General age: appears stated age
General Skin: warm and dry
General Habitus: normal
General Mental: alert
Cardiovascular Exam
Cardiovascular Exam: regular rate/rhythm and no edema
Pulmonary Exam
Pulmonary Exam: lungs clear and no respiratory distress
Gastrointestinal Exam
Gastrointestinal Exam: non tender and soft
Neurological Exam
Neurological Exam: alert, CN II-XII intact, no motor deficits, no sensory deficits and speech normal
Musculoskeletal Exam
Musculoskeletal Exam: full ROM and neuro vasc intact
Skin Exam
Skin Exam: normal color, warm/dry and no rash
Psychiatric Exam
Psychiatric Exam: normal mood/affect
Course
Orders/Labs/Results
Orders:
Orders
02/26/25 17:15
CT Head W/o Iv Contrast Urgent
Comment:
Reason For Exam: change of mental
02/26/25 17:17
Acetaminophen [Tylenol] 1,000 mg PO NOW STA
02/26/25 17:32
COVID-19 Antigen Urgent
Source: Nasal Swab
Complete Blood Count/With Diff Urgent
Comprehensive Metabolic Panel Urgent
Influenza A+B Rapid Molecular Urgent
DONG Source: Nasal Swab
Specimen Description:
02/26/25 18:36
Urinalysis Reflex To Culture Urgent
Date Specimen was Collected: 02/26/25
Time Specimen was Collected: 18:33
Urine Microscopic Reflex Cult Urgent
Urine Culture Urgent
DONG Source: U
Specimen Description:
Date Specimen was Collected: 02/26/25
Time Specimen was Collected: 18:33
02/26/25 19:23
0.9% Sodium Chloride 1000 ml [Nss] 1,000 ml IV BOLUS
02/26/25 19:55
Cefepime HCl [Maxipime] 2,000 mg IV NOW STA
02/26/25 20:38
Admit/Transfer Patient As Directed
Co-Sign Provider:
Level of Care: Inpatient admission
Assign to:: Medical/Surgical
Physician / Group: Gisela
Diagnosis: sepsis w/ encephalopathy 2/2 UTI
Reason for Hospitalization: sepsis w/ encephalopathy 2/2 UTI
Expected length of stay greater than two midnights?: Yes
ELOS- Estimated Length of Stay in days: 2
I certify the patient meets the requirements for IP care: Yes
02/26/25 20:39
PRN Pain Medication Management As Directed
May give lesser potent ordered pain med per pt: Yes
preference::
Protocol:: Medication orders for pain may be administered in a
manner that supports deferring to patient preference
when the pt is:
- Requesting an ordered lesser potent pain medication.
Least to most potent pain medications are defined
as: acetaminophen < NSAID < tramadol < opioids
(morphine, oxycodone, hydromorphone).
- Requesting a lesser dose of the same medication IF
ORDERED.
- Requesting a less intrusive route of administration
if both routes are prescribed by the provider (PO <
IV).
02/26/25 20:40
Code Status As Directed
Resuscitation Status: Full Code
02/26/25 20:45
Lactated Ringers [Lr] 500 ml IV BOLUS
Abnormal Lab Results
02/26/25 02/26/25
17:32 18:36
RBC 3.46 L 10^6/uL
(4.20-5.40)
Hgb 10.5 L g/dL
(12.0-16.0)
Hct 30.7 L %
(37.0-47.0)
Absolute Lymphs (auto) 0.7 L 10^3/uL
(1.2-3.4)
Absolute Monos (auto) 1.0 H 10^3/uL
(0.1-0.6)
Neutrophils % 76.3 H %
(42.2-75.2)
Lymphocytes % 9.4 L %
(20.5-51.1)
Monocytes % 13.1 H %
(1.7-9.3)
Sodium 134 L mmol/L
(135-145)
Glucose 112 H mg/dl
(70-99)
Ur Occult Blood Reflex 3+ A
(Negative)
Urine Nitrite (Reflex) Positive A
(Negative)
Leukocyte Esterase Rfl 3+ A
(Negative)
Urine RBC 11-15 A /HPF
(0-2)
Urine WBC (Reflex) >100 A /HPF
(0-5)
Urine Bacteria (Reflex) Many A
(Negative)
Urine Albumin (Reflex) 2+ A
(Neg - Trace)
02/26/25 17:32
02/26/25 17:32
Vital Signs
Initial and Last Documented VS:
Initial Vital Signs
Temp Pulse Resp BP Pulse Ox
101.1 F H 78 18 121/78 95
02/26/25 16:55 02/26/25 16:55 02/26/25 16:55 02/26/25 16:55 02/26/25 16:55
Last Documented Vital Signs
Temp Pulse Resp BP Pulse Ox
98.7 F 58 16 102/74 96
02/26/25 19:33 02/26/25 21:45 02/26/25 21:45 02/26/25 21:45 02/26/25 21:45
*Radiology
Radiology exam reviewed: radiology read reviewed
*Pulse Oximetry
SaO2: 93
Oxygen Mode of Delivery: Room air
Patient hypoxic: no
*Critical Care Note
Total Time (30-74mins, 75-104mins- exclusive of procedures): Not Applicable
Update Note
Update Note:
Patient to the emergency department for evaluation of increasing confusion. Symptoms started 3 days ago. On arrival to ED she has a 101.1. Spouse denies any fever at home. She was given Tylenol for her fever. Labs reviewed WBC normal at 7.6.
CMP without concerning findings. CT of head negative for acute findings. Urinalysis concerning for UTI. Positive for nitrates greater than 100 WBC many bacteria. Hypotensive at 88/54. IV fluids initiated with gradual increase in blood pressure.
Discussed results with patient and spouse. Will admit to hospitalist service, IV antibiotics started in department
ED Attending Note
-
Portions of this chart may have been created with voice recognition software.� Occasional wrong word or��sound alike� substitutions may have occurred due to the inherent limitations of voice recognition software.
Discharge Plan
Departure
Patient Disposition: Admit
Date of Disposition: 02/26/25
Time of Disposition: 20:03
Presentation/result/management discussed w/ accepting MD/DO: Hospitalist
Condition: Fair
Covid-19: Not Applicable
Discharge Problem:
Acute UTI, Acute hypotension
Interventions
Interventions:
*Risk Screen - Suicide Last Done: 02/26/25 16:55
*General Assessment Last Done: 02/26/25 17:16
*Neglect/Abuse Screening Last Done: 02/26/25 17:16
*ED COVID-19 Vaccine History Last Done: 02/26/25 17:16
*ED Influenza Vaccine History Last Done: 02/26/25 17:16
ED- Neurological Assessment Last Done: 02/26/25 17:30
ED- Cardiac Assessment Last Done: 02/26/25 17:30
ED Swallowing Screen Last Done: 02/26/25 17:30
[2025-02-26 19:05] LABS: Urine Character Cloudy (Clear)
[2025-02-26] MEDS: NSS 1000 IV ×2 (19:28→22:41)
[2025-02-26 19:40] LABS: Urine Urothelial Cell 0-2 /LPF (FEW)
[2025-02-26 19:41] LABS: Urine White Cell >100 /HPF (0-5)
[2025-02-26] MEDS: MAXIPIME 2000 MG IV (20:06)
--- NOTE | 2025-02-26 20:12 | HPS.HSE ---
Family Physician
-
Family Physician: KAR Quiroz
Chief Complaint
-
Change in mental status
History of Present Illness
This is a 64-year-old female with past medical history significant for early onset dementia (confinements with posterior cortical atrophy as well as dementia with Lewy body), RSD, chronic opioids,chronic depression and anxiety, hypothyroid, prior
cardiac arrest presenting with altered mental status.
Patient has a baseline Mini-Mental status of around 10. She has baseline difficulties with understanding of visual cues as well as apraxia at baseline. According to spouse, she started having a decline about 3 days ago. She has increased fatigue.
She had more confusion than baseline. She was not agitated. She was not somnolent. There was a recent increase in her clonazepam. Spouse was also was concerned that she may have taken extra doses of LE. This was discussed with the neurologist
who felt that the clonazepam was not associated. She was also placed on as antihistamine recently and they feel that this was not part of a picture. He was not present getting urine sample when he felt that it was better off that she brought to
the emergency department. She has never been this confused.
They deny any nausea vomiting or diarrhea. She is eating and drinking as normal. He denies any shortness of breath or cough. In ED patient is awake and cooperative.
In the emergency department patient was febrile to one 1.1, blood pressure was soft at 83/58 with a pulse of 72 and she was satting 95% on room air.'s CT of the head shows no acute or interval changes. CBC shows a white count of 7.6 with a normal
hemoglobin of 10.5 similar to prior 4. Milligrams were normal. Electrolytes were in the normal range. BUN and creatinine were normal. Glucose was normal. COVID test was negative, flu test was negative. UA was markedly positive with nitrites
leukocyte esterase bacteria and WBCs.
Medical History
Past Medical History
Past Medical History: Reports Other
Additional Past Medical History:
Early Onset Dementia
Anxiety / Depression
Reflex Sympathetic Dystrophy
Chronic Pain Syndrome
Chronic Opioid Dependence
Hypothyroidism
Nephrolithiasis
ASCVD
Past Surgical History: Reports Other
Additional Past Surgical History:
Partial Hysterectomy
ESWL
Spinal Stimulator Placement
Subtotal Thyroidectomy
Social History
Tobacco: Non-smoker
Alcohol: None
Drug: None
Personal:
Living: With Family
Family History
Family History: Not pertinent
Allergies / Home Medications
Allergies reflects when Allergies were last updated in [facility] [employer].
Home Medications with original date entered in [facility]
Allergy/Medication List:
Allergies
Allergy/AdvReac Type Severity Reaction Status Date / Time
clopidogrel Allergy Unknown Unknown Verified 10/15/23 12:25
Sulfa (Sulfonamide Allergy Hives Verified 02/08/23 12:15
Antibiotics)
Home Medications
buspirone 15 mg tablet mg 09/01/24
clonazepam 0.125 mg disintegrating tablet 0.125 mg PO HS 09/01/24
levothyroxine 25 mcg tablet 25 mcg PO DAILY 09/01/24
melatonin 3 mg tablet 6 mg PO HS 09/01/24
memantine 10 mg tablet 10 mg PO BID 09/01/24
oxycodone 30 mg tablet 30 mg PO Q6H PRN Pain 09/01/24
pantoprazole 40 mg tablet,delayed release 40 mg PO DAILY 09/01/24
pregabalin 200 mg capsule 200 mg PO TID 09/01/24
rosuvastatin 20 mg tablet 20 mg PO HS 09/01/24
sertraline 200 mg capsule 200 mg PO HS 09/01/24
trazodone 50 mg tablet 50 mg PO HS 09/01/24
Review of Systems
-
History Source: Patient and Family
A 12 point ROS was completed and negative except as noted: Yes
Respiratory: Denies Trouble Breathing
Cardiac: Denies Chest Pain
Abdomen/GI: Reports Nausea and Vomiting; Denies Abdominal Pain or Diarrhea
: Reports No Symptoms
Musculoskeletal: Reports No Symptoms
Neurological: Reports Weakness; Denies Dizzy or Headache
Physical Exam
Vital Signs
Vital Signs
Temp Pulse Resp BP Pulse Ox
98.7 F 72 28 83/58 94
02/26/25 19:33 02/26/25 19:20 02/26/25 19:20 02/26/25 19:20 02/26/25 19:20
Physical Exam
General: No Apparent Distress
HEENT: Moist mucous membranes, Atraumatic and PERRLA
Respiratory: Clear; No Wheezes, Rales or Rhonchi
Cardiac: S1/S2 and Regular Rhythm; No Murmur
GI: Soft, Non Tender, Non Distended and Normal Bowel Sounds
Rectal: Deferred by Provider
Genito-urinary: Deferred by me
Musculoskeletal: No Clubbing and No Edema
Neuro: Awake, Alert and Oriented (oriented to person only. )
Psych: Calm
Laboratory Results
-
02/26/25 17:32
02/26/25 17:32
Laboratory Results
Total Bilirubin 0.7 mg/dl (0.2-1.3) 02/26/25 17:32
AST 33 U/L (14-36) 02/26/25 17:32
ALT 18 U/L (0-35) 02/26/25 17:32
Alkaline Phosphatase 74 U/L (38-126) 02/26/25 17:32
Data Reviewed
-
CT Scan: Report Reviewed by me
Lab Data: Labs Reviewed by me
Old Records: Reviewed
Impression/Plan
-
IMPRESSION:
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
from baseline. He is alert and oriented to person and which is not far from at baseline. She is interactive. However spouse reports that she is still not quite or her normal self. She was febrile. There was no leukocytosis. She did have low
blood pressures to 83 systolic on arrival now she is under systolic with IV fluids. UA was markedly positive.
PLAN:
Sepsis with hypotension, encephalopathy secondary to urinary tract infection.
-Admit to [facility]
-Blood cultures, urine culture
-Will continue with IV cefepime for now pending cultures
-Continue hydration with IV normal saline
-Check TSH
Dementia -diagnosed in 2021, rapid progression since then. Thought to have dementia with Lewy body as well as Alzheimer's with posterior cortical atrophy.
-�Continue donepezil
� Continue memantine
� Continue buspirone
�Trazodone at bedtime for now
� Continue sertraline
Hypothyroid
- Continue levothyroxine, checking TSH
Will continue her usual medications for pain as she is chronically on opioids.
� Continue oxycodone 30 mg p.o. QID, hold for sedation
DVT prophylaxis�Lovenox subcu
CODE STATUS�full code
[2025-02-26] MEDS: LR 500 IV (20:52)
--- NOTE | 2025-02-26 22:45 | PTCARENOTE ---
Pt received from ED via stretcher at 2230. Pt pleasant, AAOx1, VSS, and able to ambulate into room with assistance. Pt somewhat receptive to room. Pt bed in lowest position and call romo within reach. Pt educated on importance of call romo usage, pt
does not relay understanding nor cooperation. Bed alarm placed and plugged in. Will continue with current plan of care.
[2025-02-26] MEDS: KLONOPIN 0.25 MG PO (23:13)
[2025-02-26] MEDS: DESYREL 50 MG PO (23:13)
[2025-02-26] MEDS: ZOLOFT 100 MG PO (23:13)
[2025-02-26] MEDS: ARICEPT 10 MG PO (23:13)
[2025-02-26] MEDS: CRESTOR 20 MG PO (23:13)
[2025-02-26] MEDS: BUSPAR 10 MG PO (23:13)
[2025-02-26] MEDS: ROXICODONE 30 MG PO (23:14)
[2025-02-26] MEDS: LYRICA 200 MG PO (23:16)
[2025-02-27] MEDS: MAXIPIME 1000 MG IV ×4 (01:09→21:44)
[2025-02-27] MEDS: STERILE WATER FOR INJECTION 10 ML IV ×4 (01:09→21:44)
[2025-02-27 03:10] VITALS: BP 168/115
[2025-02-27] MEDS: TYLENOL 650 MG PO ×4 (03:22→23:52)
[2025-02-27] MEDS: SYNTHROID 25 MCG PO (05:53)
[2025-02-27 07:01] LABS: Hematocrit 28.4 % (37.0-47.0); Hemoglobin 9.3 g/dL (12.0-16.0); Mean Corp Hgb Conc. 32.7 g/dL (33.0-37.0); Mean Corpuscular Volume 92.8 fL (81.0-99.0); Platelet Count 132 10^3/uL (130-400); Red Cell Dist. Width 13.0 % (11.5-14.5)
[2025-02-27 07:15] LABS: Blood Urea Nitrogen 10 mg/dl (7-17); Calcium 7.8 mg/dl (8.4-10.2); Carbon Dioxide 26 mmol/L (22-30); Chloride 105 mmol/L (98-107); Estimated Creatinine Clearance 74 ml/min; Glucose 94 mg/dl (70-99); Potassium 3.6 mmol/L (3.5-5.1); Sodium 133 mmol/L (135-145); eGFR > 60.00
[2025-02-27 07:40] VITALS: BP 99/61
[2025-02-27] MEDS: NAMENDA 10 MG PO ×2 (08:01→21:44)
[2025-02-27] MEDS: ESTRACE 1 MG PO (08:01)
[2025-02-27] MEDS: ROXICODONE 30 MG PO ×4 (08:01→21:50)
[2025-02-27] MEDS: PROTONIX 40 MG PO (08:01)
[2025-02-27] MEDS: BUSPAR 10 MG PO ×3 (08:01→21:44)
[2025-02-27] MEDS: LYRICA 200 MG PO ×3 (08:06→23:50)
[2025-02-27] MEDS: NSS 1000 IV ×2 (09:35→20:24)
--- NOTE | 2025-02-27 14:36 | CM ---
CM attempted to meet with patient at bedside, however she was sound asleep and chart indicates patient is oriented x1. Call placed to patient's , Eleazar, and left requesting return call. Return call received which CM was unable to take, so
CM called Eleazar again and left a second . CM will follow for discharge planning needs.
PLAN: home with VN vs. SNF pending treatment plan
--- NOTE | 2025-02-27 15:19 | W.PN.HOSP.TC ---
Today's Communication/Plan
-
Continue antibiotics pending final cultures
Wean off IV fluids with sufficient oral intake
Continue preadmission neuropsychiatric medication management
Assessment / Plan
Assessment / Plan
Impression
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
from baseline. He is alert and oriented to person and which is not far from at baseline. She is interactive. However spouse reports that she is still not quite or her normal self. She was febrile. There was no leukocytosis. She did have low
blood pressures to 83 systolic on arrival now she is under systolic with IV fluids. UA was markedly positive.
UTI.
Toxic metabolic encephalopathy secondary to above
Sepsis ruled out.
Other conditions
Dementia possibly Alzheimer type.
Hypothyroidism on replacement
Chronic pain syndrome with opiate dependence
Plan
UTI.
Toxic metabolic encephalopathy secondary to above.
Hypotension responding to IV fluids without evidence of sepsis or septic shock.
Preliminary urine cultures with E. coli.
Blood cultures pending.
Continue cefepime pending final cultures.
Wean off IV fluids as patient has sufficient oral intake and mental status improved back to baseline
Dementia -diagnosed in 2021, rapid progression since then. Thought to have dementia with Lewy body as well as Alzheimer's with posterior cortical atrophy.
-�Continue donepezil
� Continue memantine
� Continue buspirone
�Trazodone at bedtime for now
� Continue sertraline
- Continue clonazepam
Hypothyroid
- Continue levothyroxine, checking TSH
Chronic pain syndrome with opiate dependence
Will continue her usual medications for pain as she is chronically on opioids.
� Continue oxycodone 30 mg p.o. QID, hold for sedation
Anticipated Discharge: 24 - 48 hours
Subjective/Interval History
-
Date of Service: February 27, 2025
Objective Data
-
Labs:
Laboratory Results
02/27/25
06:06
WBC 6.9
Hgb 9.3 L
Hct 28.4 L
Plt Count 132
Sodium 133 L
Potassium 3.6
Chloride 105
Carbon Dioxide 26
BUN 10
Creatinine 0.8
Glucose 94
Calcium 7.8 L
Vital Signs:
Vital Signs
Temp Pulse Resp BP Pulse Ox
98.6 F 64 16 99/61 96
02/27/25 07:40 02/27/25 07:40 02/27/25 07:40 02/27/25 07:40 02/27/25 07:40
I&O
02/26/25 02/27/25 02/28/25
06:59 06:59 06:59
Intake Total 811.5 / 811.5
Balance 811.5 / 811.5
Physical Exam
-
General: Well Developed and No Apparent Distress
HEENT: Normocephalic, Atraumatic and Moist Mucous Membranes
Respiratory: Clear to Auscultation
Cardiac: Regular Rhythm and S1/S2; Negative Murmur, Rub or Gallop
GI: Soft, Nontender, Nondistended and Normal Bowel Sounds; Negative Organomegaly
Rectal: Deferred by Provider
Musculoskeletal: No Clubbing, No Cyanosis and No Edema
Skin: Negative Rash
Neuro: Awake, Alert, Oriented (To name only) and Nonfocal/Grossly Intact
--- NOTE | 2025-02-27 15:20 | CM ---
CM met with patient's at bedside while patient was receiving care. Patient's confirmed pt lives with him in a 1-story house with 3 OMI and a basement. Pt was primarily independent with care, she bathes herself and provides
some assistance with dressing. Pt has two caregivers, one private duty and one from [facility] that come on Tuesdays and to 'help manage patient.' Per , no hx of home care, SNF, or DME at home. Patient follows with [facility]iatry team in [place] for ongoing depression/anxiety related to diagnosis.
PCP: Dr. Aniceto Cornelius
Rx: [facility]
PLAN: Home with VN vs. no needs pending treatment plan
[2025-02-27 15:23] VITALS: BP 109/70
[2025-02-27 19:20] VITALS: BP 106/69
[2025-02-27] MEDS: CRESTOR 20 MG PO (21:44)
[2025-02-27] MEDS: ZOLOFT 100 MG PO (21:44)
[2025-02-27] MEDS: DESYREL 50 MG PO (21:50)
[2025-02-27] MEDS: KLONOPIN 0.25 MG PO (21:50)
[2025-02-27] MEDS: ARICEPT 10 MG PO (21:50)
[2025-02-27 23:46] VITALS: BP 120/52
[2025-02-28] MEDS: STERILE WATER FOR INJECTION 10 ML IV ×2 (02:35→07:42)
[2025-02-28] MEDS: MAXIPIME 1000 MG IV ×2 (02:36→07:42)
[2025-02-28] MEDS: TYLENOL 650 MG PO ×2 (04:14→10:03)
[2025-02-28 05:30] VITALS: BMI 28.8
[2025-02-28] MEDS: SYNTHROID 25 MCG PO (06:10)
[2025-02-28] MEDS: ROXICODONE 30 MG PO ×2 (07:43→12:22)
[2025-02-28] MEDS: PROTONIX 40 MG PO (07:43)
[2025-02-28] MEDS: ESTRACE 1 MG PO (07:43)
[2025-02-28] MEDS: NAMENDA 10 MG PO (07:44)
[2025-02-28] MEDS: BUSPAR 10 MG PO (07:44)
[2025-02-28] MEDS: LYRICA 200 MG PO (08:04)
[2025-02-28 08:18] VITALS: BP 106/67
[2025-02-28 08:31] LABS: Hematocrit 29.9 % (37.0-47.0); Hemoglobin 9.7 g/dL (12.0-16.0); Mean Corp Hgb Conc. 32.4 g/dL (33.0-37.0); Mean Corpuscular Volume 96.5 fL (81.0-99.0); Nucleated Red Blood Cells % 0 %; Platelet Count 134 10^3/uL (130-400); Red Cell Dist. Width 13.1 % (11.5-14.5)
[2025-02-28 09:05] LABS: Blood Urea Nitrogen 8 mg/dl (7-17); Calcium 7.5 mg/dl (8.4-10.2); Carbon Dioxide 25 mmol/L (22-30); Chloride 109 mmol/L (98-107); Estimated Creatinine Clearance 86 ml/min; Glucose 95 mg/dl (70-99); Potassium 3.3 mmol/L (3.5-5.1); Sodium 139 mmol/L (135-145); eGFR > 60.00
[2025-02-28] MEDS: NSS IV (10:13)
[2025-02-28] MEDS: KCL 40 MEQ PO (11:32)
--- NOTE | 2025-02-28 11:52 | W.DS.TRANS ---
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
-
Discharge Instructions:
Discharge Diagnosis/Procedures UTI
TME
Diet Regular
Instructions:
Stand-Alone Forms:
Changes to Home Medications: Yes
Discharge Medications:
DC Medications w/original date entered in [employer]
levothyroxine 25 mcg tablet 25 mcg PO DAILY Thyroid 09/01/24
memantine 10 mg tablet 10 mg PO BID Neurological Condition 09/01/24
oxycodone 30 mg tablet 30 mg PO QID Pain 09/01/24
pantoprazole 40 mg tablet,delayed release 40 mg PO DAILY Gastrointestinal Issue 09/01/24
pregabalin 200 mg capsule 200 mg PO TID@0800,1700,2200 Neurological Condition 09/01/24
rosuvastatin 20 mg tablet 20 mg PO HS High Cholesterol 09/01/24
buspirone 10 mg tablet 10 mg PO TID Mental Health/Anxiety 02/26/25
clonazepam 0.25 mg disintegrating tablet 0.25 mg PO HS Mental Health/Anxiety 02/26/25
donepezil 10 mg tablet 10 mg PO HS Mental Health/Anxiety 02/26/25
estradiol 1 mg tablet 1 mg PO DAILY Hormonal Agent 02/26/25
sertraline 100 mg tablet 100 mg PO HS Mental Health/Anxiety 02/26/25
trazodone 50 mg tablet 50 mg PO HS Sleep 02/26/25
cephalexin 500 mg capsule 500 mg PO QID #20 caps 02/28/25
Home Medication Changes
Antibiotics for additional 5 days
Pending Results: No
--- NOTE | 2025-02-28 12:15 | CM ---
CM reviewed chart, patient seen in chair, present.
Patient for d/c today, denies needs.
IMM verbally reviewed, provided with copy, placed in chart.
to transport home.
CM will continue to follow for all d/c needs.
Plan; home with family
[2025-02-28] MEDS: KEFLEX 500 MG PO (12:22)
[2025-02-28] MEDS: FLUZONE HIGH-DOSE 2025-26 0.5 ML IM (12:23)
[2025-02-28 12:44] VITALS: BP 124/74
== END 2025-02-28 14:37 | disposition home or self-care (01) | DRG 689 ==
LOC: 4 WEST ACU 21:06
PROVIDERS: Nurse Practitioner; ADMITTING PHYSICIAN Internal Medicine; ATTENDING PHYSICIAN Internal Medicine; EMERGENCY PHYSICIAN Emergency Medicine
PROC: 3E02340 Introduction of Influenza Vaccine into Muscle, Percutaneous Approach (ICD-10-PCS; 2025-02-28)
DX: N39.0 Urinary tract infection, site not specified (principal); G92.8 Other toxic encephalopathy; F02.83 Dementia in other diseases classified elsewhere, unspecified severity, with mood disturbance; F02.84 Dementia in other diseases classified elsewhere, unspecified severity, with anxiety; F11.20 Opioid dependence, uncomplicated; I95.9 Hypotension, unspecified; E03.9 Hypothyroidism, unspecified; G89.4 Chronic pain syndrome; I25.10 Atherosclerotic heart disease of native coronary artery without angina pectoris; F32.A Depression, unspecified; G30.0 Alzheimer's disease with early onset; G31.83 Neurocognitive disorder with Lewy bodies; E78.00 Pure hypercholesterolemia, unspecified; G31.9 Degenerative disease of nervous system, unspecified; Z87.442 Personal history of urinary calculi; Z80.7 Family history of other malignant neoplasms of lymphoid, hematopoietic and related tissues; Z86.74 Personal history of sudden cardiac arrest; Z96.82 Presence of neurostimulator; Z88.2 Allergy status to sulfonamides; Z88.8 Allergy status to other drugs, medicaments and biological substances; Z90.711 Acquired absence of uterus with remaining cervical stump; Z23 Encounter for immunization; Z11.52 Encounter for screening for COVID-19
CPT/HCPCS: 70450; 80048; 80053; 81003; 81015; 85025; 85027; 87086; 87088; 87186; 87502; 87811; 90662; 96361; 96374; 99285; G0008